=== PATIENT | female | born 1980 | race Caucasian/White ===

== ENCOUNTER 2016-07-09 02:42 | Emergency (ER) | payer OTHER ==
[~2016-07-09 02:42] MED LIST: Ketorolac INJ* 30 MG/ML 1 ML VIAL IV PUSH ONE; NS 0.9% 1000 ML* 1,000 ML IV ONE; PROCHLORPERAZINE INJ 5 MG/ML 2 ML VIAL IV PRN; diPHENhydraMINE IV* 25 MG in NS 0.9% 50 ML* 50 ML IVPB ONE
--- NOTE | 2016-07-09 02:47 | ED ---
Headache - HPI Summary HPI Summary: Patient presents for evaluation of throbbing to sharp mid-forehead headache for the last 2 hours refractory to her imitrex. Denies systemic symptoms, neuro deficits, specific inciting factors. No recent change to her regimen. Feels typical, but more severe. - History Of Current Complaint Stated Complaint: MIGRAINE Time Seen by Provider: 07/09/16 02:42 Hx Obtained From: Patient Hx Last Menstrual Period: On Depo; not sexually active since the summer Onset/Duration: Gradual Onset, Started hours ago Initially Headache Was: Moderate Currently Pain Is: Moderate Character: Sharp, Throbbing, Typical Headache, Migraine - Allergies/Home Medications Allergies/Adverse Reactions: Allergies Allergy/AdvReac Type Severity Reaction Status Date / Time Erythromycin Allergy Severe Hives/Diff. Verified 07/09/16 02:57 Breathing/I tching Cephalexin [From Keflex] Allergy Intermediate Hives/Diff. Verified 07/09/16 02: 57 Breathing/I tching Doxycycline Allergy Intermediate Hives/Diff. Verified 07/09/16 02:57 Breathing/I tching Sulfamethoxazole Allergy Intermediate Hives/Diff. Verified 07/09/16 02:57 w/Trimethoprim Breathing/I [From Bactrim] tching Ibuprofen Allergy Hives/Diff. Verified 07/09/16 02:57 Breathing/I tching Naproxen [From Naprosyn] Allergy Hives/Diff. Verified 07/09/16 02:57 Breathing/I tching Penicillins Allergy Unknown Verified 07/09/16 02:57 Reaction Details Tetanus Toxoid Allergy Hives/Diff. Verified 07/09/16 02:57 Breathing/I tching BANANAS Allergy Vomiting Uncoded 07/09/16 02:57 ENVIRONMENTAL Allergy Eyes Uncoded 07/09/16 02:57 Itchy/Swollen/Red/Watery ibuprofen Allergy Hives Uncoded 07/09/16 02:57 MUSCLE RELAXANT Allergy SEVERE Uncoded 07/09/16 02:57 NAUSEA AND VOMITING PMH/Surg Hx/FS Hx/Imm Hx Previously Healthy: Yes Endocrine/Hematology History: Denies: Hx Diabetes, Hx Thyroid Disease Cardiovascular History: Denies: Hx Hypertension Respiratory History: Reports: Hx Asthma, Hx Sleep Apnea, Other Respiratory Problems/Disorders - SINUS POLYPS Denies: Hx Chronic Obstructive Pulmonary Disease (COPD) GI History: Reports: Other GI Disorders - STATES TENDS TO GET NAUSEATED WITH PAIN & ANESTHESIA Denies: Hx Ulcer History: Reports: Hx Kidney Infection - FREQUENT HX OF LAST ONE 2 WEEKS AGO, Other Problems/Disorders - STATES EVERY TIME SHE IS CATHERIZED SHE GETS INFECTION Musculoskeletal History: Reports: Hx Arthritis - BILATERAL JAW - TMJ, Hx Tendonitis - Hx OF, YEARS AGO, ARMS Sensory History: Reports: Hx Contacts or Glasses - WILL WEAR GLASSES DAY OF SURGERY Denies: Hx Hearing Aid Opthamlomology History: Reports: Hx Contacts or Glasses - WILL WEAR GLASSES DAY OF SURGERY Neurological History: Reports: Hx Migraine - UNDER CONTROL, Other Neuro Impairments/Disorders - NYSTAGUMUS Psychiatric History: Reports: Hx Anxiety - ON MED, Hx Depression - Surgical History Surgery Procedure, Year, and Place: TMJ SURGERY X2 2001, 2002. 2006. sinus surgery Hx Anesthesia Reactions: No Infectious Disease History: Denies: Hx Clostridium Difficile, Hx Hepatitis, Hx Human Immunodeficiency Virus (HIV), Hx of Known/Suspected MRSA, Hx Shingles, Hx Tuberculosis, Hx Known/ Suspected VRE, Hx Known/Suspected VRSA, History Other Infectious Disease - Family History Known Family History: Positive: Diabetes - maternal grandmother - Social History Alcohol Use: Rare Alcohol Amount: MAYBE 1 DRINK/YEAR Substance Use Type: Reports: None Smoking Status (MU): Never Smoked Tobacco Have You Smoked in the Last Year: No Review of Systems Negative: Chills Negative: Photophobia, Blurred Vision, Diplopia Positive: Headache. Negative: Weakness, Paresthesia, Numbness, Syncope, Slurred Speech All Other Systems Reviewed And Are Negative: Yes Physical Exam Triage Information Reviewed: Yes Vital Signs Reviewed: Yes Appearance: Positive: Well-Appearing, Well-Nourished, Pain Distress Skin: Positive: Warm, Skin Color Reflects Adequate Perfusion, Dry Head/Face: Positive: Normal Head/Face Inspection. Negative: Temporal Artery Tenderness, TMJ Tenderness Eyes: Positive: Normal, EOMI, MARCIO ENT: Positive: Normal ENT inspection, Hearing grossly normal, Pharynx normal, TMs normal Respiratory/Lung Sounds: Positive: Clear to Auscultation, Breath Sounds Present Cardiovascular: Positive: Normal, RRR, Pulses are Symmetrical in both Upper and Lower Extremities Abdomen Description: Positive: Nontender, No Organomegaly, Soft Musculoskeletal: Positive: Normal, Strength/ROM Intact Neurological: Positive: Normal, Sensory/Motor Intact, Alert, Oriented to Person Place, Time, CN Intact II-III, Reflexes Intact, Normal Gait Headache Course/Dx - Diagnoses Differential Diagnosis/HQI/PQRI: Migraine, Tension Headache, Other - PRimary concern for migrainous headache. Supportive care and PCP FU. Provider Diagnoses: Headache, Drug-seeking behavior Discharge - Discharge Plan Condition: Improved Disposition: HOME Patient Education Materials: Acute Headache (ED) Referrals: Maddison Graham NP [Nurse Practitioner] - Mariano Diggs MD [Primary Care Provider] -
[2016-07-09 02:57] VITALS: BP 120/63
== END 2016-07-09 04:21 | disposition home or self-care (01) ==
LOC: ED 02:42
DX: R51 Headache (principal); Z76.5 Malingerer [conscious simulation]; F41.9 Anxiety disorder, unspecified; F32.9 Major depressive disorder, single episode, unspecified; Z88.0 Allergy status to penicillin; Z88.2 Allergy status to sulfonamides
CPT/HCPCS: 96360; 96374; 96375; 99283; J0780; J1200; J1885

== ENCOUNTER 2016-10-19 19:29 | Emergency (ER) | payer OTHER ==
--- NOTE | 2016-10-19 19:50 | UC ---
Allergic Reaction HPI - HPI Summary HPI Summary: complaint of being bit by a bug on her right hand 1 hour ago she notied swelling on hir right hand her tongue and throat started to feel swollen and tight denies any shortness of breath hx of anaphylactic reactions to may antoibitoics in the past doesn't have an epi pen - History of Current Complaint Stated Complaint: ALLERGIC REACTION Time Seen by Provider: 10/19/16 19:44 Hx Obtained From: Patient Hx Last Menstrual Period: On Depo; not sexually active since the summer - Allergies/Home Medications Allergies/Adverse Reactions: Allergies Allergy/AdvReac Type Severity Reaction Status Date / Time Erythromycin Allergy Severe Hives/Diff. Verified 10/19/16 19:51 Breathing/I tching Cephalexin [From Keflex] Allergy Intermediate Hives/Diff. Verified 10/19/16 19: 51 Breathing/I tching Doxycycline Allergy Intermediate Hives/Diff. Verified 10/19/16 19:51 Breathing/I tching Levofloxacin [From Levaquin] Allergy Intermediate Vomiting Verified 10/19/16 20: 34 Sulfamethoxazole Allergy Intermediate Hives/Diff. Verified 10/19/16 19:51 w/Trimethoprim Breathing/I [From Bactrim] tching Ibuprofen Allergy Hives/Diff. Verified 10/19/16 19:51 Breathing/I tching Naproxen [From Naprosyn] Allergy Hives/Diff. Verified 10/19/16 19:51 Breathing/I tching Penicillins Allergy Unknown Verified 10/19/16 19:51 Reaction Details Tetanus Toxoid Allergy Hives/Diff. Verified 10/19/16 19:51 Breathing/I tching BANANAS Allergy Vomiting Uncoded 10/19/16 19:51 ENVIRONMENTAL Allergy Eyes Uncoded 10/19/16 19:51 Itchy/Swollen/Red/Watery ibuprofen Allergy Hives Uncoded 10/19/16 19:51 MUSCLE RELAXANT Allergy SEVERE Uncoded 10/19/16 19:51 NAUSEA AND VOMITING PMH/Surg Hx/FS Hx/Imm Hx Previously Healthy: Yes Endocrine History Of: Denies: Diabetes, Thyroid Disease Cardiovascular History Of: Denies: Cardiac Disorders, Hypertension, Pacemaker/ICD Respiratory History Of: Reports: Asthma, Bronchitis - Hx OF, LAST WAS 04/2015 Denies: COPD GI/ History Of: Denies: Ulcer, Renal Disease Neurological History Of: Reports: Migraine - UNDER CONTROL Psychological History Of: Reports: Anxiety - ON MED, Depression - Surgical History Surgical History: Yes Surgery Procedure, Year, and Place: TMJ SURGERY X2 2001, 2002. 2006. sinus surgery. [facility] & C. CAUTERIZED TEAR DUCTS - Family History Known Family History: Positive: Diabetes - maternal grandmother Negative: Cardiac Disease, Hypertension - Social History Occupation: Employed Full-time Lives: With Family Alcohol Use: Rare Alcohol Amount: MAYBE 1 DRINK/YEAR Substance Use Type: None Smoking Status (MU): Never Smoked Tobacco Have You Smoked in the Last Year: No Review of Systems Constitutional: Negative Skin: Other - right hand with insecct bite Eyes: Negative ENT: Other - swollen tongue Respiratory: Negative Cardiovascular: Negative Gastrointestinal: Negative Genitourinary: Negative Motor: Negative Neurovascular: Negative Musculoskeletal: Negative Neurological: Negative Psychological: Negative All Other Systems Reviewed And Are Negative: Yes Physical Exam Triage Information Reviewed: Yes Appearance: Well-Nourished, Pain Distress Vital Signs Reviewed: Yes Eyes: Positive: Conjunctiva Clear ENT: Positive: TMs normal, Other: - tongue swollen unable to see back of throat. Negative: Nasal congestion Neck: Positive: No Lymphadenopathy Respiratory: Positive: Lungs clear, Normal breath sounds, No respiratory distress, No accessory muscle use Cardiovascular: Positive: RRR, No Murmur, Pulses Normal, Brisk Capillary Refill Abdomen Description: Positive: Nontender, No Organomegaly, Soft Bowel Sounds: Positive: Present Musculoskeletal: Positive: Other: - right hand - edema and raised area on eminence of thumb Neurological: Positive: Alert Psychological Exam: Normal Skin Exam: Normal Allergic Reaction Course/Dx - Course Course Of Treatment: exam completed. responded well to anaphylaxis treatment- tongue swelling resolving , VSS, will treat for cellulitis with zithromax because it appears to be the only antibiotic and discharge on prednisone, benadryl and epi pen. followup with PCP - Differential Dx/Diagnosis Differential Diagnosis/HQI/PQRI: Airway Obstruction, Anaphylaxis, Bronchospasm Provider Diagnoses: anaphylactic reaction Discharge - Discharge Plan Condition: Stable Disposition: HOME Prescriptions: Azithromycin TAB* [Zithromax TAB (Z-MSESI) 250 mg #6 tabs] 2 tab PO .TODAY, THEN 1 DAILY #1 messi Epinephrine [Epipen 2-Messi] 0.3 mg IM SEE INSTRUCTIONS #1 inj diPHENhydraMINE PO* [Benadryl PO 50 MG CAP*] 50 mg PO TID #15 cap predniSONE TAB* [Deltasone TAB*] 50 mg PO DAILY #5 tab Patient Education Materials: Anaphylaxis (ED), Cellulitis (ED) Referrals: Luis Fowler DO [Primary Care Provider] - Additional Instructions: Please start antibiotic , prednisone and benadryl as directed please make followup appt with your primary care provider for followup seem medical assistance for allergic reactions and if the swelling a, redness pain in your hand increase or you develop a fever Increase fluids and rest Take acetaminophen or ibuprofen for fever or pain Please review your discharge instructions. If your symptoms do not improve please call your primary care provider or return to urgent care.
[2016-10-19] MEDS ORDERED: EPINEPHrine AMP 1 MG/ML SUBCUT ONE (19:53)
[2016-10-19] MEDS ORDERED: diPHENhydraMINE IV* 50 MG/ML 1 ml VIAL (BENADRYL) IM ONE (19:53)
[2016-10-19] MEDS ORDERED: methylPREDNISolone 125 MG* 2 ML VIAL IM ONE (19:54)
[2016-10-19] MEDS ORDERED: Azithromycin TAB* 250 MG PO ONE (20:46)
[2016-10-19 21:04] VITALS: BP 112/68
== END 2016-10-19 20:59 | disposition home or self-care (01) ==
LOC: UCEAST 19:29
DX: T63.91XA Toxic effect of contact with unspecified venomous animal, accidental (unintentional), initial encounter (principal); T78.2XXA Anaphylactic shock, unspecified, initial encounter; X58.XXXA Exposure to other specified factors, initial encounter; J45.909 Unspecified asthma, uncomplicated; G43.909 Migraine, unspecified, not intractable, without status migrainosus; F41.9 Anxiety disorder, unspecified; F32.9 Major depressive disorder, single episode, unspecified; Z88.1 Allergy status to other antibiotic agents; Z88.6 Allergy status to analgesic agent; Z88.0 Allergy status to penicillin; Z88.2 Allergy status to sulfonamides; Z88.7 Allergy status to serum and vaccine
CPT/HCPCS: 96372; 99212; A9270-GY; G0463; J0171; J1200; J2930

== ENCOUNTER 2016-11-21 14:49 | Emergency (ER) | payer OTHER ==
[2016-11-21] MEDS ORDERED: diPHENhydraMINE IV* 50 MG/ML 1 ml VIAL (BENADRYL) SLOW PUSH ONE (14:52)
[2016-11-21 15:05] VITALS: BP 113/69
--- NOTE | 2016-11-21 15:42 | UC ---
General HPI - HPI Summary HPI Summary: The patient comes in today for: 1. "I'm having an allergic reaction:" Onset: about one hour ago. Palliative/provocative: Nothing. Quality: Itching. Region: Right hand for the bite. Severity: Headache: 6/10 Time: Constant. Associated symptoms: Event: "It looked like a dot." She states as well as her son that she was stung by a spider. The "spider" was so small, that it "Looked like a dot." AFter this happened, she started to experience "dizziness" ("unsteady"), and pain where she was "bitten." She also complained of having pruritis. She had some nausea and feeling "weird." She states that she has a "migraine" all day. She states that she has bitemporal and frontal headache. She drove over to us 20 minutes after she was "bit." "I felt like something was not right." She also described vertigo. Headaches: She has been getting "migraines" since 4th grade. She sees an unclaimed property officer who was evaluating her for a possible pituitary tumor, but this was ruled out. She is not scheduled yet for her neurology appointment. At this time, she is taking verapamil every day and sumatriptin--neither of them have been helping. LMP: November 07 of this year. When the patient initially came in complaining of an allergic reaction, she had no signs of one--no hives, no erythema or edema of the "bite" area, no bronchospasm, or vital sign abnormalities. She seemed more anxious than having an allergic reaction--thus the Benadryl IV since she stated that she felt like she was having an allergic reaction. * - History of Current Complaint Chief Complaint: UCGeneralIllness Stated Complaint: TROUBLE BREATHING, SPIDER BITE Time Seen by Provider: 11/21/16 14:51 Hx Obtained From: Patient, Family/Batteryman - Allergy/Home Medications Allergies/Adverse Reactions: Allergies Allergy/AdvReac Type Severity Reaction Status Date / Time Erythromycin Allergy Severe Hives/Diff. Verified 11/21/16 14:55 Breathing/I tching Cephalexin [From Keflex] Allergy Intermediate Hives/Diff. Verified 11/21/16 14: 55 Breathing/I tching Doxycycline Allergy Intermediate Hives/Diff. Verified 11/21/16 14:55 Breathing/I tching Levofloxacin [From Levaquin] Allergy Intermediate Vomiting Verified 11/21/16 14: 55 Sulfamethoxazole Allergy Intermediate Hives/Diff. Verified 11/21/16 14:55 w/Trimethoprim Breathing/I [From Bactrim] tching Ibuprofen Allergy Hives/Diff. Verified 11/21/16 14:55 Breathing/I tching Naproxen [From Naprosyn] Allergy Hives/Diff. Verified 11/21/16 14:55 Breathing/I tching Penicillins Allergy Unknown Verified 11/21/16 14:55 Reaction Details Tetanus Toxoid Allergy Hives/Diff. Verified 11/21/16 14:55 Breathing/I tching ENVIRONMENTAL Allergy Eyes Uncoded 11/21/16 14:55 Itchy/Swollen/Red/Watery ibuprofen Allergy Hives Uncoded 11/21/16 14:55 MUSCLE RELAXANT Allergy SEVERE Uncoded 11/21/16 14:55 NAUSEA AND VOMITING BANANAS AdvReac Vomiting Uncoded 11/21/16 14:55 PMH/Surg Hx/FS Hx/Imm Hx Previously Healthy: No - TMJ syndrome, chronic headaches. Respiratory History: Asthma Psychological History: Anxiety, Depression - Surgical History Surgical History: Yes Surgery Procedure, Year, and Place: TMJ SURGERY X2 2001, 2002. 2006. sinus surgery. [facility] & C. CAUTERIZED TEAR DUCTS - Family History Known Family History: Positive: Diabetes - maternal grandmother Negative: Cardiac Disease, Hypertension - Social History Occupation: Unemployed Lives: With Family Alcohol Use: Rare Alcohol Amount: MAYBE 1 DRINK/YEAR Substance Use Type: None Smoking Status (MU): Never Smoked Tobacco Have You Smoked in the Last Year: No Review of Systems Constitutional: Negative Skin: Negative Eyes: Negative ENT: Negative Respiratory: Negative Cardiovascular: Negative Gastrointestinal: Nausea Genitourinary: Negative Musculoskeletal: Arthralgia All Other Systems Reviewed And Are Negative: Yes Physical Exam Triage Information Reviewed: Yes Appearance: Well-Appearing, No Pain Distress, Well-Nourished Vital Signs: Initial Vital Signs Temp 99.1 F 11/21/16 15:00 Pulse 91 11/21/16 15:00 Resp 18 11/21/16 15:00 BP 113/69 11/21/16 15:00 Pulse Ox 100 11/21/16 15:00 Vital Signs Reviewed: Yes Eyes: Positive: Conjunctiva Clear. Negative: Discharge ENT: Positive: Hearing grossly normal, Other: - No oral edema.. Negative: Pharyngeal erythema, Nasal congestion, Nasal drainage, TM bulging, TM dull, TM red, Tonsillar swelling, Tonsillar exudate Dental: Negative: Gross Decay/Caries @, Dental Fracture @ Neck: Positive: Supple, Nontender, No Lymphadenopathy. Negative: Nuchal Rigidity Respiratory: Positive: Lungs clear, No respiratory distress, No accessory muscle use. Negative: Crackles, Wheezing Cardiovascular: Positive: RRR, No Murmur Abdomen Description: Positive: Nontender, No Organomegaly, Soft. Negative: Distended, Guarding Musculoskeletal: Positive: Strength Intact, ROM Intact, No Edema Neurological: Positive: Alert, Muscle Tone Normal Psychological: Positive: Normal Response To Family, Age Appropriate Behavior, Consolable Skin: Negative: rashes, breakdown Course/Dx - Course Course Of Treatment: Patient was given IV Bendaryl (25 mg) and she stated that she felt better. She was told that there are drug interactions between the Zofran and her mental health medications. Also, she was told that Tylenol #3 could also have a drug interaction, but would try a low-dose of Tylenol #3. She agreed. - Differential Dx - Multi-Symptom Provider Diagnoses: headache. insect bite Discharge - Discharge Plan Condition: Stable Disposition: HOME Patient Education Materials: Insect Bite or Sting (ED), General Headache (ED) Referrals: Luis Fowler DO [Primary Care Provider] - 1 Day (Please see your primary care provider tomorrow or no later in 2 days to see how well you are doing.)
[2016-11-21] MEDS ORDERED: Acetaminop/Codeine 30 MG TAB* 1 TAB (300 MG/30 MG) PO ONE (16:09)
== END 2016-11-21 16:30 | disposition home or self-care (01) ==
LOC: UCEAST 14:49
DX: R51 Headache (principal); S60.561A Insect bite (nonvenomous) of right hand, initial encounter; W57.XXXA Bitten or stung by nonvenomous insect and other nonvenomous arthropods, initial encounter; Y93.9 Activity, unspecified; Y92.9 Unspecified place or not applicable; Y99.9 Unspecified external cause status; J45.909 Unspecified asthma, uncomplicated; F41.8 Other specified anxiety disorders
CPT/HCPCS: 96374; 99212; 99213; A9270-GY; G0463; J1200

== ENCOUNTER 2017-06-11 09:41 | Emergency (ER) | payer OTHER ==
[2017-06-11] MEDS ORDERED: Acetaminophen TAB* 325 MG PO ONE ×2 (11:17→11:22)
[2017-06-11] MEDS ORDERED: Phenazopyridine TAB* 100 MG PO ONE (11:17)
[2017-06-11 11:31] VITALS: BP 98/61
--- NOTE | 2017-06-11 12:11 | UC ---
Maria De Jesus Maldonado Emily, scribed for Mariano Mitchell MD on 06/11/17 at 1138 . Complaint Female HPI - HPI Summary HPI Summary: This patient is a 36 year old F presenting to urgent care with a chief complaint of dysuria that began last night. The patient rates the pain 5/10 in severity. Symptoms aggravated by nothing. Symptoms alleviated by nothing. Patient reports dysuria, low back pain, chills, increased urinary frequency, and nausea. Patient denies nasal discharge, sore throat, vaginal discharge, vomiting, and diarrhea. - History Of Current Complaint Chief Complaint: UCGU Stated Complaint: URINARY ISSUE Time Seen by Provider: 06/11/17 10:50 Hx Obtained From: Patient Hx Last Menstrual Period: 05/28/16 ?: No Onset/Duration: Sudden Onset, Lasting Hours, Still Present Timing: Constant Severity Initially: Moderate Severity Currently: Moderate Pain Intensity: 5 Pain Scale Used: 0-10 Numeric Character: Burning Aggravating Factor(s): Movement Alleviating Factor(s): Nothing Associated Signs And Symptoms: Negative: Vaginal Bleeding/Discharge - Allergies/Home Medications Allergies/Adverse Reactions: Allergies Allergy/AdvReac Type Severity Reaction Status Date / Time Erythromycin Allergy Severe Hives/Diff. Verified 06/11/17 09:45 Breathing/I tching Cephalexin [From Keflex] Allergy Intermediate Hives/Diff. Verified 06/11/17 09: 45 Breathing/I tching Doxycycline Allergy Intermediate Hives/Diff. Verified 06/11/17 09:45 Breathing/I tching Levofloxacin [From Levaquin] Allergy Intermediate Vomiting Verified 06/11/17 09: 45 Sulfamethoxazole Allergy Intermediate Hives/Diff. Verified 06/11/17 09:45 w/Trimethoprim Breathing/I [From Bactrim] tching Ibuprofen Allergy Hives/Diff. Verified 06/11/17 09:45 Breathing/I tching Naproxen [From Naprosyn] Allergy Hives/Diff. Verified 06/11/17 09:45 Breathing/I tching Penicillins Allergy Unknown Verified 06/11/17 09:45 Reaction Details Tetanus Toxoid Allergy Hives/Diff. Verified 06/11/17 09:45 Breathing/I tching ENVIRONMENTAL Allergy Eyes Uncoded 06/11/17 09:45 Itchy/Swollen/Red/Watery ibuprofen Allergy Hives Uncoded 06/11/17 09:45 MUSCLE RELAXANT Allergy SEVERE Uncoded 06/11/17 09:45 NAUSEA AND VOMITING BANANAS AdvReac Vomiting Uncoded 06/11/17 09:45 Home Medications: Home Medications Ascorbic Acid TAB* [Vitamin C TAB*] 1,000 mg PO BID 06/11/17 [History Confirmed 06/11/17] Biotin 2,000 mcg PO DAILY 06/11/17 [History Confirmed 06/11/17] Calcium W/ Vitamins D & K [Calcium + D 500-1000-40 mg-Unt-Mcg] 1 tab PO DAILY [History Confirmed 06/11/17] Cyanocobalamin INJ * [Vitamin B12 INJ *] 1 inj IM MONTHLY 06/11/17 [History Confirmed 06/11/17] Dihydroergotamine (D.H.E.)* [D.h.e. 45*] 1 ml IM TID PRN 06/11/17 [History Confirmed 06/11/17] Evening Braggs Oil 1,300 mg PO DAILY 06/11/17 [History Confirmed 06/11/17] Levetiracetam [Keppra 250] 1 tab PO DAILY 06/11/17 [History Confirmed 06/11/17] Magnesium 500 mg PO DAILY 06/11/17 [History Confirmed 06/11/17] Methylphenidate TAB* [Ritalin TAB*] 20 mg PO TID PRN 06/11/17 [History Confirmed 06/11/17] Pyridoxine HCl [Vitamin B-6] 4 tab PO DAILY 06/11/17 [History Confirmed 06/11/17 ] Selenium 150 mg PO DAILY 06/11/17 [History Confirmed 06/11/17] Zinc [Zinc Chelated] 75 mg PO DAILY 06/11/17 [History Confirmed 06/11/17] PMH/Surg Hx/FS Hx/Imm Hx Previously Healthy: No Respiratory History: Other Other Respiratory History: Negative asthma GI/ History: Other Other GI/ History: UTI - Surgical History Surgical History: Yes Surgery Procedure, Year, and Place: TMJ SURGERY X2 2001, 2002. 2006. sinus surgery. D & C. CAUTERIZED TEAR DUCTS - Family History Known Family History: Positive: Diabetes - maternal grandmother Negative: Cardiac Disease, Hypertension - Social History Occupation: Employed Part-time Lives: With Family Alcohol Use: Rare Alcohol Amount: MAYBE 1 DRINK/YEAR Substance Use Type: None Smoking Status (MU): Never Smoked Tobacco Have You Smoked in the Last Year: No Review of Systems Constitutional: Chills ENT: Other - Negative nasal discharge and sore throat Gastrointestinal: Nausea, Other - Negative vomiting and diarrhea Genitourinary: Dysuria, Frequency, Other - Negative vaginal discharge Musculoskeletal: Other: - Positive low back pain All Other Systems Reviewed And Are Negative: Yes Physical Exam Triage Information Reviewed: Yes Vital Signs: Initial Vital Signs Temp 98 F 06/11/17 09:46 Pulse 76 06/11/17 09:46 Resp 17 06/11/17 09:46 BP 101/49 06/11/17 09:46 Pulse Ox 100 06/11/17 09:46 Vital Signs Reviewed: Yes - Additional Comments General: no pain distress, mildly ill appearing Skin: warm, color reflects adequate perfusion, dry Head: normal Eyes: EOMI, MARCIO ENT: normal Neck: supple, nontender Respiratory: CTA, breath sounds present Cardiovascular: RRR Abdomen: soft, mild suprapubic tenderness to palpation Bowel: present Musculoskeletal: strength/ROM intact, tenderness to percussion bilateral CVA Neurological: normal, sensory/motor intact, A&O x3 Psychological: affect/mood appropriate Complaint Female Dx - Course Course Of Treatment: RX MACROBID. F/U PMD; REEVAL IF WORSE. - Differential Dx/Diagnosis Provider Diagnoses: UTI Discharge - Discharge Plan Condition: Stable Disposition: HOME Prescriptions: Nitrofurantoin Monohyd Macro [Macrobid] 100 mg PO BID #20 cap Phenazopyridine 200 mg (NF) [Pyridium 200 MG tab *] 200 mg PO TID PRN #10 tab PRN Reason: Pain Patient Education Materials: Urinary Tract Infection in Women (ED) Forms: *Work Release Referrals: Luis Fowler DO [Primary Care Provider] - Additional Instructions: FOLLOW UP WITH YOUR DOCTOR. GET RECHECKED FOR ANY WORSENING OF YOUR CONDITION OR QUESTIONS OR CONCERNS. The documentation as recorded by the Maria De Jesus fontaine Emily accurately reflects the service I personally performed and the decisions made by me, Mariano Mitchell MD.
--- NOTE | 2017-06-12 21:58 | UC ---
- Progress Note Progress Note: + UTI on macrobid await sensitivity no change Vikas 06/12/2017 Course/Dx - Course Course Of Treatment: RX MACROBID. F/U PMD; REEVAL IF WORSE.
== END 2017-06-11 11:30 | disposition home or self-care (01) ==
LOC: UCEAST 09:41
DX: N39.0 Urinary tract infection, site not specified (principal); B96.20 Unspecified Escherichia coli [E. coli] as the cause of diseases classified elsewhere; Z87.440 Personal history of urinary (tract) infections; Z88.6 Allergy status to analgesic agent; Z88.1 Allergy status to other antibiotic agents; Z88.0 Allergy status to penicillin; Z88.2 Allergy status to sulfonamides; Z88.7 Allergy status to serum and vaccine
CPT/HCPCS: 81003; 87077; 87086; 87186; 99213; A9270-GY; G0463

== ENCOUNTER 2017-07-09 07:24 | Emergency (ER) | payer OTHER ==
[2017-07-09 07:42] VITALS: BP 105/53
--- NOTE | 2017-07-09 08:25 | UC ---
Complaint Female HPI - HPI Summary HPI Summary: Pt presents with urinary pain, pressure, and frequency since early this morning. She tells me that she has a history of UTIs and this feels similar. She was last seen about 1 month ago for a cultue +UTI and placed on Macrobid with good relief of her symptoms. She denies fever, chills, abdominal pain, n/v/ d/c, vaginal discharge/bleeding, or flank pain. - History Of Current Complaint Chief Complaint: UCGU Stated Complaint: LOWER BACK PAIN Time Seen by Provider: 07/09/17 08:22 Hx Obtained From: Patient Hx Last Menstrual Period: 06/28/17 Onset/Duration: Sudden Onset Timing: Constant Severity Initially: Mild Severity Currently: Moderate Pain Intensity: 6 Pain Scale Used: 0-10 Numeric Character: Burning - Allergies/Home Medications Allergies/Adverse Reactions: Allergies Allergy/AdvReac Type Severity Reaction Status Date / Time MS Erythromycin Allergy Severe Hives/Diff. Verified 07/09/17 07:47 [Erythromycin] Breathing/I tching MS Cephalexin [From Keflex] Allergy Intermediate Hives/Diff. Verified 07/09/17 07:47 Breathing/I tching MS Doxycycline [Doxycycline] Allergy Intermediate Hives/Diff. Verified 07/09/17 07:47 Breathing/I tching MS Levofloxacin Allergy Intermediate Vomiting Verified 07/09/17 07:47 [From Levaquin] MS Sulfamethoxazole Allergy Intermediate Hives/Diff. Verified 07/09/17 07:47 w/Trimethoprim Breathing/I [From Bactrim] tching MS Ibuprofen [Ibuprofen] Allergy Hives/Diff. Verified 07/09/17 07:47 Breathing/I tching MS Naproxen [From Naprosyn] Allergy Hives/Diff. Verified 07/09/17 07:47 Breathing/I tching MS Penicillins [Penicillins] Allergy Unknown Verified 07/09/17 07:47 Reaction Details MS Tetanus Toxoid Allergy Hives/Diff. Verified 07/09/17 07:47 [Tetanus Toxoid] Breathing/I tching ENVIRONMENTAL Allergy Eyes Uncoded 07/09/17 07:47 Itchy/Swollen/Red/Watery ibuprofen Allergy Hives Uncoded 07/09/17 07:47 MUSCLE RELAXANT Allergy SEVERE Uncoded 07/09/17 07:47 NAUSEA AND VOMITING BANANAS AdvReac Vomiting Uncoded 07/09/17 07:47 PMH/Surg Hx/FS Hx/Imm Hx - Additional Past Medical History Additional PMH: Chronic pain Neurological History: Seizures, Migraine - Surgical History Surgical History: Yes Surgery Procedure, Year, and Place: TMJ SURGERY X2 2001, 2002. 2006. sinus surgery. [facility]. CAUTERIZED TEAR DUCTS - Family History Known Family History: Positive: Diabetes - maternal grandmother Negative: Cardiac Disease, Hypertension - Social History Lives: With Family Alcohol Use: Rare Alcohol Amount: MAYBE 1 DRINK/YEAR Substance Use Type: None Smoking Status (MU): Never Smoked Tobacco Have You Smoked in the Last Year: No Review of Systems Constitutional: Negative Skin: Negative Respiratory: Negative Cardiovascular: Negative Gastrointestinal: Negative Genitourinary: Dysuria, Frequency, Urgency Motor: Negative Musculoskeletal: Negative Neurological: Negative Psychological: Negative All Other Systems Reviewed And Are Negative: Yes Physical Exam Triage Information Reviewed: Yes Appearance: Well-Appearing, No Pain Distress, Well-Nourished Vital Signs: Initial Vital Signs Temp 98 F 07/09/17 07:40 Pulse 66 07/09/17 07:40 Resp 16 07/09/17 07:40 BP 105/53 07/09/17 07:40 Pulse Ox 99 07/09/17 07:40 Vital Signs Reviewed: Yes Neck: Positive: Supple, Nontender, No Lymphadenopathy Respiratory: Positive: Lungs clear, Normal breath sounds, No respiratory distress Cardiovascular: Positive: RRR, No Murmur, Pulses Normal Abdomen Description: Positive: Nontender, No Organomegaly, Soft. Negative: CVA Tenderness (R), CVA Tenderness (L), Distended, Guarding Bowel Sounds: Positive: Present Neurological: Positive: Alert Psychological: Positive: Age Appropriate Behavior Skin: Negative: rashes Complaint Female Dx - Course Course Of Treatment: UA with signs of infection - will treat with macrobid and pyridium and send for culture. - Differential Dx/Diagnosis Provider Diagnoses: UTI Discharge - Discharge Plan Condition: Stable Disposition: HOME Prescriptions: Nitrofurantoin Macrocrystal [Nitrofurantoin] 100 mg PO BID #10 capsule Phenazopyridine 200 mg (NF) [Pyridium 200 MG tab *] 200 mg PO TID #6 tab Patient Education Materials: Urinary Tract Infection in Women (DC) Referrals: Sopchak,Luis, DO [Primary Care Provider] - Additional Instructions: If you develop a fever, shortness of breath, chest pain, new or worsening symptoms - please call your PCP or go to the ED.
[2017-07-09] MEDS ORDERED: Phenazopyridine TAB* 100 MG PO ONE (08:26)
== END 2017-07-09 08:40 | disposition home or self-care (01) ==
LOC: UCEAST 07:24
DX: N39.0 Urinary tract infection, site not specified (principal); Z87.440 Personal history of urinary (tract) infections; R56.9 Unspecified convulsions; G43.909 Migraine, unspecified, not intractable, without status migrainosus; Z88.6 Allergy status to analgesic agent; Z88.1 Allergy status to other antibiotic agents; Z88.0 Allergy status to penicillin; Z88.7 Allergy status to serum and vaccine
CPT/HCPCS: 81003; 87086; 99212; A9270-GY; G0463

== ENCOUNTER 2017-07-14 10:47 | Emergency (ER) | payer OTHER ==
[2017-07-14 11:41] LABS: ABS Basophils 0 10^3/ul (0-0.2); ABS Eosinophils 0.1 10^3/ul (0-0.6); ABS Monocytes 0.4 10^3/ul (0-0.8); ABS Neutrophils 3.4 10^3/ul (1.5-7.7); ABS Nucleated RBC 0 10^3/ul; Eosinophil % 0.9 % (0-6); Hematocrit 40 % (35-47); Hemoglobin 13.3 g/dl (12.0-16.0); Lymphocyte % 33.8 % (25-47); Mean Corpuscular HGB Conc 34 g/dl (31-36); Mean Corpuscular Hemoglobin 30 pg (27-31); Mean Corpuscular Volume 88 fL (80-97); Mean Platelet Volume 7 um3 (7.4-10.4); Nucleated Red Blood Cells % 0.1; Platelet Count 265 10^3/ul (150-450); Red Blood Count 4.47 10^6/ul (4.0-5.4); Red Cell Distribution Width 14 % (10.5-15)
[2017-07-14 11:58] LABS: EGFR Non-African American 93.1 (>60)
[2017-07-14] MEDS ORDERED: Ondansetron ODT TAB* 4 MG PO ONE (12:42)
[2017-07-14] MEDS ORDERED: Ondansetron ODT TAB* 4 MG ONE (12:43)
--- NOTE | 2017-07-14 13:34 | RAD ---
HISTORY: Right flank pain, history of stones COMPARISONS: September 15, 2006 TECHNIQUE: Multiple transverse and longitudinal ultrasound images were obtained of the right kidney and bladder using grayscale and color Doppler imaging. FINDINGS: RIGHT KIDNEY: The right kidney is normal in shape, size, contour, and echogenicity. There is mild pelviectasis. There is echogenic material noted within the pelvis. The right kidney measures 9.8 x 5 x 5.3 cm. LEFT KIDNEY: No images are submitted of the left kidney. BLADDER: The bladder is smooth in contour. Bilateral ureteral jets are identified. AORTA AND IVC: No images are submitted of the vasculature. RETROPERITONEUM: Unremarkable. OTHER: None. IMPRESSION: THERE IS MILD RIGHT-SIDED HYDRONEPHROSIS. THERE IS ECHOGENIC MATERIAL WITHIN THE RIGHT RENAL PELVIS WHICH SUGGESTS COMPLEX FLUID, POSSIBLY IN THE SETTING OF UPPER URINARY TRACT INFECTION
[2017-07-14] MEDS ORDERED: Ketorolac INJ* 30 MG/ML 1 ML VIAL IV PUSH ONE (14:05)
[2017-07-14] MEDS ORDERED: NS 0.9% 1000 ML* 2,000 ML IV ONE (14:09)
[2017-07-14] MEDS ORDERED: Ondansetron INJ* 2 MG/ML VIAL IV ONE (14:36)
[2017-07-14] MEDS ORDERED: Morphine INJ* 10 MG/ML 1 ML CARPUJECT IV ONE (14:36)
[2017-07-14 14:44] LABS: Urine Appearance Clear; Urine Blood Negative (Negative); Urine Color Yellow; Urine Ketones Negative (Negative); Urine Protein Negative (Negative); Urine Specific Gravity 1.008 (1.010-1.030); Urine Urobilinogen Negative (Negative)
--- NOTE | 2017-07-14 15:02 | RAD ---
CLINICAL HISTORY: Right flank pain, hydronephrosis COMPARISON: Ultrasound dated July 14, 2017 TECHNIQUE: Multiple contiguous axial CT scans were obtained of the abdomen and pelvis, without intravenous contrast enhancement. Coronal and sagittal multiplanar reformations are submitted for review. Oral contrast was not administered. FINDINGS: LUNG BASES: The lung bases are clear. LIVER: The liver is normal in shape, size, contour, and attenuation. BILE DUCTS: There is no intrahepatic or extrahepatic biliary dilatation. GALLBLADDER: The gallbladder is normal, without pericholecystic inflammatory change. PANCREAS: The pancreas is normal, without mass or ductal dilatation. SPLEEN: Normal in size and appearance. UPPER GI TRACT: Evaluation of the gastrointestinal tract is limited by incomplete gastric distention. The upper GI tract is unremarkable. SMALL BOWEL AND MESENTERY: The small bowel is normal in contour, course, and caliber. There is no obstruction or dilatation. COLON: The colon is normal in contour, course, caliber. There is no pericolonic inflammatory change. There is a tubular, vermiform, hollow viscus that is blind ending, and originates from the cecum, consistent with a normal appendix. There is no periappendiceal inflammatory change. This is best seen on coronal images 40 through 46. ADRENALS: Normal bilaterally. KIDNEYS: Right-sided hydronephrosis noted on sonography is not clearly evident on the current examination. There is no appreciable nephrolithiasis. BLADDER: The bladder is smooth in contour. PELVIC ORGANS: The uterus and adnexa are grossly normal for technique. AORTA: The aorta is normal. IVC: Unremarkable LYMPH NODES: There is no lymphadenopathy by size criteria. ABDOMINAL WALL: There is no evidence for abdominal wall hernia. BONES AND SOFT TISSUES: Unremarkable OTHER: None IMPRESSION: THE RIGHT-SIDED HYDRONEPHROSIS NOTED ON SONOGRAPHY IS NOT CLEARLY EVIDENT ON THE CURRENT CT EXAMINATION. THERE IS NO APPRECIABLE NEPHROLITHIASIS.
[2017-07-14] MEDS ORDERED: oxyCODONE/Acetamin 5/325 MG* TAB PO ONE (16:28)
[2017-07-14] MEDS ORDERED: Lidocaine PATCH 5%* 1 PATCH TRANSDERM ONE (16:28)
--- NOTE | 2017-07-14 17:32 | RAD ---
HISTORY: Right upper quadrant pain COMPARISONS: Renal ultrasound dated July 14, 2009, CT dated July 14, 2018 TECHNIQUE: Multiple transverse and longitudinal ultrasound images were obtained of the right upper quadrant of the abdomen using grayscale and color Doppler imaging. FINDINGS: LIVER: The liver is normal in shape, size, contour, and echogenicity. There are no focal parenchymal masses. There is normal hepatopedal flow of the portal vein on Doppler imaging. BILIARY TREE: There is no intrahepatic or extrahepatic biliary dilatation. The common duct measures 0.4 cm. GALLBLADDER: The gallbladder is well-visualized. There is no cholelithiasis, gallbladder wall thickening, pericholecystic fluid, or sonographic Haas sign. PANCREAS: The pancreas is obscured by overlying bowel gas. RIGHT KIDNEY: The right kidney is normal in shape, size, contour, and echogenicity. The right hydronephrosis noted on the previous examination is not evident on the current examination. . AORTA AND IVC: The aorta and IVC are unremarkable. FLUID: There are no pleural effusions. There is no free fluid within the hepatorenal recess. OTHER FINDINGS: None. IMPRESSION: THE RIGHT HYDRONEPHROSIS NOTED ON THE PREVIOUS ULTRASOUND EXAMINATION IS NOT EVIDENT ON THE CURRENT EXAMINATION. NO ACUTE SONOGRAPHIC PATHOLOGY OF THE VISUALIZED PORTION OF THE ABDOMEN.
[2017-07-14 19:11] VITALS: BP 112/74
[2017-07-14] MEDS ORDERED: traMADol TAB* 50 MG PO PRN (19:12)
[2017-07-14] MEDS ORDERED: Lidocaine Patch REMOVE* 1 NOTE MISC SCH (21:00)
--- NOTE | 2017-07-15 22:42 | ED ---
Dillon Maldonado Stephanie, scribed for Geovani Vazquez MD on 07/14/17 at 1310 . Back Pain - HPI Summary HPI Summary: The pt is a 36 y/o F presenting to the ED with c/o R flank pain that began overnight on 07/14. Symptoms include vomiting. The pt denies fever, hematuria and chills. The pt states she recently finished taking abx for a UTI which she started taking on 07/09. - History of Current Complaint Chief Complaint: EDFlankPain Stated Complaint: RIGHT SIDE ABD PAIN, Time Seen by Provider: 07/14/17 12:54 Hx Obtained From: Patient Hx Last Menstrual Period: 06/28/17 Onset/Duration: Sudden Onset, Lasting Hours, Still Present Onset/Duration: Started Hours Ago, Still Present Timing: Constant Back Pain Location: Is Discrete @ - R flank Severity Currently: Severe Pain Intensity: 6 Pain Scale Used: 0-10 Numeric Character: Sharp Aggravating Symptom(s): Movement, Other - palpation Alleviating Symptom(s): Nothing Associated Signs And Symptoms: Positive: Flank Pain - R, Other - Negative: hematuria, chills. Negative: Fever - Allergies/Home Medications Allergies/Adverse Reactions: Allergies Allergy/AdvReac Type Severity Reaction Status Date / Time banana Allergy Vomiting Verified 07/14/17 13:51 cephalexin [From Keflex] Allergy Difficulty Verified 07/14/17 13:51 Breathing doxycycline Allergy Difficulty Verified 07/14/17 13:51 Breathing/Wheezing erythromycin base Allergy Difficulty Verified 07/14/17 13:51 [From Erythrocin] Breathing ibuprofen Allergy Hives Verified 07/14/17 13:51 levofloxacin [From Levaquin] Allergy Vomiting Verified 07/14/17 13:51 naproxen [From Naprosyn] Allergy Difficulty Verified 07/14/17 13:51 Breathing Penicillins Allergy Unknown Verified 07/14/17 13:51 Reaction Details sulfamethoxazole Allergy Difficulty Verified 07/14/17 13:51 [From Bactrim] Breathing tetanus and diphtheria Allergy Difficulty Verified 07/14/17 13:51 toxoids Breathing trimethoprim [From Bactrim] Allergy Difficulty Verified 07/14/17 13:51 Breathing ENVIRONMENTAL Allergy Eyes Uncoded 07/09/17 07:47 Itchy/Swollen/Red/Watery ibuprofen Allergy Hives Uncoded 07/09/17 07:47 muscle rel Allergy Vomiting Uncoded 07/14/17 13:51 MUSCLE RELAXANT Allergy SEVERE Uncoded 07/09/17 07:47 NAUSEA AND VOMITING BANANAS AdvReac Vomiting Uncoded 07/09/17 07:47 PMH/Surg Hx/FS Hx/Imm Hx Endocrine/Hematology History: Denies: Hx Diabetes, Hx Thyroid Disease Cardiovascular History: Denies: Hx Hypertension, Hx Pacemaker/ICD Respiratory History: Reports: Hx Asthma, Hx Sleep Apnea, Other Respiratory Problems/Disorders - SINUS POLYPS Denies: Hx Chronic Obstructive Pulmonary Disease (COPD) GI History: Reports: Other GI Disorders - STATES TENDS TO GET NAUSEATED WITH PAIN & ANESTHESIA Denies: Hx Ulcer History: Reports: Hx Kidney Infection - FREQUENT HX OF LAST ONE 2 WEEKS AGO, Other Problems/Disorders - STATES EVERY TIME SHE IS CATHERIZED SHE GETS INFECTION Denies: Hx Renal Disease Musculoskeletal History: Reports: Hx Arthritis - BILATERAL JAW - TMJ, Hx Tendonitis - Hx OF, YEARS AGO, ARMS Sensory History: Reports: Hx Contacts or Glasses - WILL WEAR GLASSES DAY OF SURGERY Denies: Hx Hearing Aid Opthamlomology History: Reports: Hx Contacts or Glasses - WILL WEAR GLASSES DAY OF SURGERY Neurological History: Reports: Hx Migraine - UNDER CONTROL, Other Neuro Impairments/Disorders - NYSTAGUMUS Psychiatric History: Reports: Hx Anxiety - ON MED, Hx Depression Denies: Hx Panic Disorder - Surgical History Surgery Procedure, Year, and Place: TMJ SURGERY X2 2001, 2002. 2006. sinus surgery. [facility]. CAUTERIZED TEAR DUCTS Hx Anesthesia Reactions: No - Immunization History Date of Tetanus Vaccine: allergic to vaccine Date of Influenza Vaccine: fall 2015 Infectious Disease History: No Infectious Disease History: Denies: Hx Clostridium Difficile, Hx Hepatitis, Hx Human Immunodeficiency Virus (HIV), Hx of Known/Suspected MRSA, Hx Shingles, Hx Tuberculosis, Hx Known/ Suspected VRE, Hx Known/Suspected VRSA, History Other Infectious Disease, Traveled Outside the [place] in Last 30 Days - Family History Known Family History: Positive: Diabetes - maternal grandmother Negative: Cardiac Disease, Hypertension - Social History Occupation: Employed Part-time Lives: Alone Alcohol Use: Rare Alcohol Amount: MAYBE 1 DRINK/YEAR Substance Use Type: Reports: None Smoking Status (MU): Never Smoked Tobacco Have You Smoked in the Last Year: No Review of Systems Negative: Fever, Chills Negative: Erythema Negative: Sore Throat Negative: Chest Pain Negative: Shortness Of Breath, Cough Positive: Vomiting. Negative: Abdominal Pain, Diarrhea, Nausea Positive: flank pain. Negative: dysuria, hematuria Negative: Myalgia, Edema Negative: Rash Neurological: Other - Negative: dizziness All Other Systems Reviewed And Are Negative: Yes Physical Exam - Summary Physical Exam Summary: Constitutional: Well-developed, Well-nourished, Alert. (-) Distressed Skin: Warm, Dry HENT: Normocephalic; Atraumatic Eyes: Conjunctiva normal Neck: Musculoskeletal ROM normal neck. (-) JVD, (-) Stridor, (-) Tracheal deviation Cardio: Rhythm regular, rate normal, Heart sounds normal; Intact distal pulses; The pedal pulses are 2+ and symmetric. Radial pulses are 2+ and symmetric. (-) Murmur Pulmonary/Chest wall: Effort normal. (-) Respiratory distress, (-) Wheezes, (-) Rales Abd: suprapubic tenderness and R CVA tenderness, (-) Distension, (-) Guarding, ( -) Rebound Musculoskeletal: (-) Edema Lymph: (-) Cervical adenopathy Neuro: Alert, Oriented x3 Psych: Mood and affect Normal Triage Information Reviewed: Yes Vital Signs On Initial Exam: Initial Vitals Temp Pulse Resp BP Pulse Ox 98.5 F 76 18 115/63 99 07/14/17 10:54 07/14/17 10:54 07/14/17 10:54 07/14/17 10:54 07/14/17 10:54 Vital Signs Reviewed: Yes Diagnostics - Vital Signs Vital Signs Temp Pulse Resp BP Pulse Ox 07/14/17 12:30 78 104/57 98 07/14/17 12:00 75 101/53 97 07/14/17 11:30 84 106/59 97 07/14/17 11:22 86 97/46 98 07/14/17 11:20 87/45 07/14/17 10:54 98.5 F 76 18 115/63 99 - Laboratory Lab Results: Lab Results 07/14/17 07/14/17 Range/Units 11:34 11:34 WBC 6.0 (3.5-10.8) 10^3/ul RBC 4.47 (4.0-5.4) 10^6/ul Hgb 13.3 (12.0-16.0) g/dl Hct 40 (35-47) % MCV 88 (80-97) fL MCH 30 (27-31) pg MCHC 34 (31-36) g/dl RDW 14 (10.5-15) % Plt Count 265 (150-450) 10^3/ul MPV 7 L (7.4-10.4) um3 Neut % (Auto) 57.3 (38-83) % Lymph % (Auto) 33.8 (25-47) % Luna % (Auto) 7.3 (1-9) % Eos % (Auto) 0.9 (0-6) % Baso % (Auto) 0.7 (0-2) % Absolute Neuts (auto) 3.4 (1.5-7.7) 10^3/ul Absolute Lymphs (auto) 2.0 (1.0-4.8) 10^3/ul Absolute Monos (auto) 0.4 (0-0.8) 10^3/ul Absolute Eos (auto) 0.1 (0-0.6) 10^3/ul Absolute Basos (auto) 0 (0-0.2) 10^3/ul Absolute Nucleated RBC 0 10^3/ul Nucleated RBC % 0.1 Sodium 133 (133-145) mmol/L Potassium 3.6 (3.5-5.0) mmol/L Chloride 101 (101-111) mmol/L Carbon Dioxide 29 (22-32) mmol/L Anion Gap 3 (2-11) mmol/L BUN 11 (6-24) mg/dL Creatinine 0.71 (0.51-0.95) mg/dL Est GFR ( Amer) 119.8 (>60) Est GFR (Non-Af Amer) 93.1 (>60) BUN/Creatinine Ratio 15.5 (8-20) Glucose 76 (70-100) mg/dL Calcium 8.8 (8.6-10.3) mg/dL Total Bilirubin 0.60 (0.2-1.0) mg/dL AST 23 (13-39) U/L ALT 24 (7-52) U/L Alkaline Phosphatase 66 (34-104) U/L Total Protein 6.8 (6.4-8.9) g/dL Albumin 4.0 (3.2-5.2) g/dL Globulin 2.8 (2-4) g/dL Albumin/Globulin Ratio 1.4 (1-3) Result Diagrams: 07/14/17 11:34 07/14/17 11:34 Lab Statement: Any lab studies that have been ordered have been reviewed, and results considered in the medical decision making process. - CT abdomen/pelvis CT Interpretation: No Acute Changes CT Interpretation Completed By: Radiologist - THE RIGHT-SIDED HYDRONEPHROSIS NOTED ON SONOGRAPHY IS NOT CLEARLY EVIDENT ON THE CURRENT CT EXAMINATION. THERE IS NO APPRECIABLE NEPHROLITHIASIS. - Additional Comments Diagnostic Additional Comments: US renal reveals: THERE IS MILD RIGHT-SIDED HYDRONEPHROSIS. THERE IS ECHOGENIC MATERIAL WITHIN THE RIGHT RENAL PELVIS WHICH SUGGESTS COMPLEX FLUID, POSSIBLY IN THE SETTING OF UPPER URINARY TRACT INFECTION US gallbladder reveals: THE RIGHT HYDRONEPHROSIS NOTED ON THE PREVIOUS ULTRASOUND EXAMINATION IS NOT EVIDENT ON THE CURRENT EXAMINATION. NO ACUTE SONOGRAPHIC PATHOLOGY OF THE VISUALIZED PORTION OF THE ABDOMEN. Re-Evaluation - Re-Evaluation First Eval Re-Evaluation Time: 14:40 Change: Unchanged - The pt is still in significant pain. Second Eval Re-Evaluation Time: 16:33 Change: Unchanged - Pt reports pain in RUQ. Third Eval Re-Evaluation Time: 18:10 Change: Improved - The pt states she feels comfortable. Back Pain Course/Dx - Course Course Of Treatment: The CT and US do not show possible source of pain. CT and US no source for pain. There is no obvious sign of active UTI. The cultures are pending. Abx treatment will be based on cultures. Tramadol is prescribed to the pt for pain. - Diagnoses Provider Diagnoses: Flank pain Discharge - Discharge Plan Condition: Stable Disposition: HOME Prescriptions: traMADol TAB* [Ultram*] 50 mg PO Q6HR PRN #10 tab MDD 4 PRN Reason: Pain - Moderate To Severe Patient Education Materials: Flank Pain (ED) Referrals: Luis Fowler DO [Primary Care Provider] - 3 Days Additional Instructions: RETURN TO THE EMERGENCY DEPARTMENT FOR CHANGING OR WORSENING SYMPTOMS The documentation as recorded by the Dillon ofntaine Stephanie accurately reflects the service I personally performed and the decisions made by , Geovani Vazquez MD.
== END 2017-07-14 18:24 | disposition home or self-care (01) ==
LOC: ED 10:47
DX: N13.30 Unspecified hydronephrosis (principal); Z88.7 Allergy status to serum and vaccine; Z88.8 Allergy status to other drugs, medicaments and biological substances; Z88.3 Allergy status to other anti-infective agents; Z88.0 Allergy status to penicillin
CPT/HCPCS: 36415; 74176; 76705; 76775; 80053; 81003; 83605; 84702; 85025; 87040; 96361; 96374; 96375; 99285; A9270-GY; J1885; J2270; J2405

== ENCOUNTER 2017-07-27 22:16 | Emergency (ER) | payer SELFPAY ==
[2017-07-27] MEDS ORDERED: cefTRIAXone VIAL(*) 1,000 MG VIAL IM ONE (22:52)
[2017-07-27] MEDS ORDERED: diPHENhydraMINE IV* 50 MG/ML 1 ml VIAL (BENADRYL) IM ONE (22:53)
[2017-07-27] MEDS ORDERED: Phenazopyridine 200 mg (NF) 200 MG TAB PO ONE (22:53)
[2017-07-27] MEDS ORDERED: Lidocaine 1%* 5 ML VIAL ONE (22:58)
[2017-07-27 23:14] LABS: Urine Appearance Clear; Urine Blood 2+ (Negative); Urine Color Straw; Urine Ketones Negative (Negative); Urine Protein Negative (Negative); Urine Specific Gravity 1.003 (1.010-1.030); Urine Urobilinogen Negative (Negative)
[2017-07-27] MEDS ORDERED: Phenazopyridine TAB* 100 MG PO ONE (23:45)
[2017-07-28] MEDS ORDERED: Phenazopyridine TAB* 100 MG ONE (00:02)
[2017-07-28 00:15] VITALS: BP 107/60
--- NOTE | 2017-07-28 01:50 | ED ---
Maria De Jesus Maldonado Emily, scribed for Michael Ureña MD on 07/27/17 at 2255 . GI/ HPI - HPI Summary HPI Summary: This patient is a 36 year old M presenting to [facility] accompanied by family with a chief complaint of dysuria that began one week ago. Pt reports having urinary symptoms off and on since May,. The patient rates the pain 6/10 in severity. Symptoms aggravated by nothing. Symptoms alleviated by nothing. Patient reports increased urinary frequency, flank pain, and chills. Patient denies vaginal symptoms and fever. Pt reports seeing PCP for symptoms and being diagnosed with a kidney infection. - History of Current Complaint Chief Complaint: EDFlankPain Time Seen by Provider: 07/27/17 22:43 Stated Complaint: RT FLANK PAIN Hx Obtained From: Patient Hx Last Menstrual Period: 07/13/17 Onset/Duration: Started Weeks Ago, Worse Since - One week ago Timing: Intermittent, Lasting Days Severity: Moderate Current Severity: Moderate Pain Intensity: 6 Location of Pain: Flank Associated Signs and Symptoms: Positive: Other: - Positive increased urinary frequency, flank pain, and chills. Negative vaginal symptoms and fever - Allergy/Home Medications Allergies/Adverse Reactions: Allergies Allergy/AdvReac Type Severity Reaction Status Date / Time banana Allergy Vomiting Verified 07/14/17 13:51 cephalexin [From Keflex] Allergy Difficulty Verified 07/14/17 13:51 Breathing doxycycline Allergy Difficulty Verified 07/14/17 13:51 Breathing/Wheezing erythromycin base Allergy Difficulty Verified 07/14/17 13:51 [From Erythrocin] Breathing ibuprofen Allergy Hives Verified 07/14/17 13:51 levofloxacin [From Levaquin] Allergy Vomiting Verified 07/14/17 13:51 naproxen [From Naprosyn] Allergy Difficulty Verified 07/14/17 13:51 Breathing Penicillins Allergy Unknown Verified 07/14/17 13:51 Reaction Details sulfamethoxazole Allergy Difficulty Verified 07/14/17 13:51 [From Bactrim] Breathing tetanus and diphtheria Allergy Difficulty Verified 07/14/17 13:51 toxoids Breathing trimethoprim [From Bactrim] Allergy Difficulty Verified 07/14/17 13:51 Breathing ENVIRONMENTAL Allergy Eyes Uncoded 07/09/17 07:47 Itchy/Swollen/Red/Watery ibuprofen Allergy Hives Uncoded 07/09/17 07:47 muscle rel Allergy Vomiting Uncoded 07/14/17 13:51 MUSCLE RELAXANT Allergy SEVERE Uncoded 07/09/17 07:47 NAUSEA AND VOMITING BANANAS AdvReac Vomiting Uncoded 07/09/17 07:47 PMH/Surg Hx/FS Hx/Imm Hx Previously Healthy: No Endocrine/Hematology History: Denies: Hx Diabetes, Hx Thyroid Disease Cardiovascular History: Denies: Hx Hypertension, Hx Pacemaker/ICD Respiratory History: Reports: Hx Asthma, Hx Sleep Apnea, Other Respiratory Problems/Disorders - SINUS POLYPS Denies: Hx Chronic Obstructive Pulmonary Disease (COPD) GI History: Reports: Other GI Disorders - STATES TENDS TO GET NAUSEATED WITH PAIN & ANESTHESIA Denies: Hx Ulcer History: Reports: Hx Kidney Infection - FREQUENT HX OF LAST ONE 2 WEEKS AGO, Other Problems/Disorders - STATES EVERY TIME SHE IS CATHERIZED SHE GETS INFECTION Denies: Hx Renal Disease Musculoskeletal History: Reports: Hx Arthritis - BILATERAL JAW - TMJ, Hx Tendonitis - Hx OF, YEARS AGO, ARMS Sensory History: Reports: Hx Contacts or Glasses - WILL WEAR GLASSES DAY OF SURGERY Denies: Hx Hearing Aid Opthamlomology History: Reports: Hx Contacts or Glasses - WILL WEAR GLASSES DAY OF SURGERY Neurological History: Reports: Hx Migraine - UNDER CONTROL, Other Neuro Impairments/Disorders - NYSTAGUMUS Psychiatric History: Reports: Hx Anxiety - ON MED, Hx Depression Denies: Hx Panic Disorder - Surgical History Surgery Procedure, Year, and Place: TMJ SURGERY X2 2001, 2002. 2006. sinus surgery. [facility]. CAUTERIZED TEAR DUCTS Hx Anesthesia Reactions: No - Immunization History Date of Tetanus Vaccine: allergic to vaccine Date of Influenza Vaccine: fall 2015 Infectious Disease History: No Infectious Disease History: Denies: Hx Clostridium Difficile, Hx Hepatitis, Hx Human Immunodeficiency Virus (HIV), Hx of Known/Suspected MRSA, Hx Shingles, Hx Tuberculosis, Hx Known/ Suspected VRE, Hx Known/Suspected VRSA, History Other Infectious Disease, Traveled Outside the [place] in Last 30 Days - Family History Known Family History: Positive: Diabetes - maternal grandmother Negative: Cardiac Disease, Hypertension - Social History Occupation: Employed Part-time Lives: With Family Alcohol Use: Rare Alcohol Amount: MAYBE 1 DRINK/YEAR Substance Use Type: Reports: None Smoking Status (MU): Never Smoked Tobacco Have You Smoked in the Last Year: No Review of Systems Positive: Chills. Negative: Fever Positive: Other - Positive flank pain Positive: dysuria, frequency, other - Negative vaginal symptoms All Other Systems Reviewed And Are Negative: Yes Physical Exam - Summary Physical Exam Summary: Appearance: Well appearing, no pain distress Skin: warm, dry, reflects adequate perfusion Head/face: normal Eyes: EOMI, MARCIO ENT: normal Neck: supple, non-tender Respiratory: CTA, breath sounds present Cardiovascular: RRR, pulses symmetrical Abdomen: non-tender, soft Bowel: present Musculoskeletal: normal, strength/ROM intact Neuro: normal, sensory motor intact, A&Ox3 Triage Information Reviewed: Yes Vital Signs On Initial Exam: Initial Vitals Temp Pulse Resp BP Pulse Ox 97 F 96 18 112/97 100 07/27/17 22:26 07/27/17 22:26 07/27/17 22:26 07/27/17 22:26 07/27/17 22:26 Vital Signs Reviewed: Yes Diagnostics - Vital Signs Vital Signs Temp Pulse Resp BP Pulse Ox 07/27/17 22:26 97 F 96 18 112/97 100 - Laboratory Lab Results: Lab Results 07/27/17 Range/Units 22:53 Urine Color Straw Urine Appearance Clear Urine pH 5.0 (5-9) Ur Specific [place] 1.003 L (1.010-1.030) Urine Protein Negative (Negative) Urine Ketones Negative (Negative) Urine Blood 2+ A (Negative) Urine Nitrate Negative (Negative) Urine Bilirubin Negative (Negative) Urine Urobilinogen Negative (Negative) Ur Leukocyte Esterase 3+ A (Negative) Urine WBC (Auto) 2+(11-20/hpf) A (Absent) Urine RBC (Auto) Trace(0-2/hpf) (Absent) Ur Squamous Epith Cells Present A (Absent) Urine Bacteria Absent (Absent) Urine Glucose Negative (Negative) Lab Statement: Any lab studies that have been ordered have been reviewed, and results considered in the medical decision making process. GIGU Course/Dx - Course Course Of Treatment: Pt with recurrent UTI and hx of medication sensitivity. IM rocephin here with benadryl. Given pyridium with relief. To f/u with PCP and Uro to eval for complicating causes like IC. - Diagnoses Differential Diagnoses - Female: Other - UTI, Interstitial cystitis Provider Diagnoses: Recurrent UTI (urinary tract infection) Discharge - Discharge Plan Condition: Good Disposition: HOME Prescriptions: Nitrofurantoin Macrocrystals* [Macrodantin*] 100 mg PO BID #28 cap Phenazopyridine 200 mg (NF) [Pyridium 200 MG tab *] 200 mg PO TID #9 tab Patient Education Materials: Urinary Tract Infection in Women (ED) Referrals: Luis Fowler DO [Primary Care Provider] - Additional Instructions: Call Sunday for follow up with your doctor -- they may consider referring you to Urology to evaluate for entities such as Interstitial Cystitis and other conditions that can cause recurring infection. Drink plenty of cranberry juice, fluids. Return if worse, vomiting, fevers or other concerns. The documentation as recorded by the Maria De Jesus fontaine Emily accurately reflects the service I personally performed and the decisions made by me, Michael Ureña MD.
== END 2017-07-28 00:13 | disposition home or self-care (01) ==
LOC: ED 22:16
DX: N39.0 Urinary tract infection, site not specified (principal); Z88.6 Allergy status to analgesic agent; Z88.3 Allergy status to other anti-infective agents; Z88.0 Allergy status to penicillin; Z88.2 Allergy status to sulfonamides; Z88.7 Allergy status to serum and vaccine; Z88.8 Allergy status to other drugs, medicaments and biological substances
CPT/HCPCS: 81003; 81015; 87086; 87491; 87591; 96372; 99283; A9270-GY; J0696; J1200

== ENCOUNTER 2018-01-04 14:31 | Emergency (ER) | payer MEDICAID ==
[2018-01-04 15:13] VITALS: BP 107/61
[2018-01-04] MEDS ORDERED: Acetaminophen TAB* 325 MG PO ONE (16:14)
--- NOTE | 2018-01-04 16:32 | UC ---
Complaint Female HPI - HPI Summary HPI Summary: Per transmitter tester "Difficulty urinating, frequency and urgency, dysuria, chills, fever, and lower back pain since this morning. Taking excedrin extra strength prn w/ some fever/pain relief, last taken today 1200. Also taking pyridium prn w / relief- last dose 1200. " -sx started this morning. she has required IV abx in ER for UTIs in past d/t multiple drug allergies. she doesnt feel she is at this point. + frequency w/ little output, burning. no n/v. slight LBP - History Of Current Complaint Chief Complaint: UCGU Stated Complaint: URINARY Time Seen by Provider: 01/04/18 16:25 Hx Last Menstrual Period: MIRENA IUD Pain Intensity: 5 - Allergies/Home Medications Allergies/Adverse Reactions: Allergies Allergy/AdvReac Type Severity Reaction Status Date / Time cephalexin [From Keflex] Allergy Difficulty Verified 01/04/18 15:02 Breathing doxycycline Allergy Difficulty Verified 01/04/18 15:02 Breathing/Wheezing erythromycin base Allergy Difficulty Verified 01/04/18 15:02 [From Erythrocin] Breathing ibuprofen Allergy Hives Verified 01/04/18 15:02 levofloxacin [From Levaquin] Allergy Vomiting Verified 01/04/18 15:02 naproxen [From Naprosyn] Allergy Difficulty Verified 01/04/18 15:02 Breathing Penicillins Allergy Unknown Verified 01/04/18 15:02 Reaction Details sulfamethoxazole Allergy Difficulty Verified 01/04/18 15:02 [From Bactrim] Breathing tetanus and diphtheria Allergy Difficulty Verified 01/04/18 15:02 toxoids Breathing trimethoprim [From Bactrim] Allergy Difficulty Verified 01/04/18 15:02 Breathing ENVIRONMENTAL Allergy Eyes Uncoded 01/04/18 15:02 Itchy/Swollen/Red/Watery ibuprofen Allergy Hives Uncoded 01/04/18 15:02 MUSCLE RELAXANT Allergy SEVERE Uncoded 01/04/18 15:02 NAUSEA AND VOMITING Home Medications: Home Medications Acetaminophen with Codeine [Acetaminophen-Cod #3 Tablet] 1 tab TID PRN 01/04/18 [History Confirmed 01/04/18] Iron,Carb/Vit C/Vit B12/Folic [Iron 100 Plus Tablet] 1 tab DAILY 01/04/18 [ History Confirmed 01/04/18] Selenium 1 tab DAILY 01/04/18 [History Confirmed 01/04/18] Zolpidem TAB* [Ambien*] 1 tab QPM 01/04/18 [History Confirmed 01/04/18] PMH/Surg Hx/FS Hx/Imm Hx Previously Healthy: Yes Neurological History: Seizures Psychological History: Anxiety, Depression - Surgical History Surgical History: Yes Surgery Procedure, Year, and Place: TMJ SURGERY x2 2001, 2002. 2006. sinus surgery. [facility]. CAUTERIZED TEAR DUCTS - Family History Known Family History: Positive: Diabetes - maternal grandmother Negative: Cardiac Disease, Hypertension - Social History Alcohol Use: Rare Alcohol Amount: MAYBE 1 DRINK/YEAR Substance Use Type: None Smoking Status (MU): Never Smoked Tobacco Have You Smoked in the Last Year: No - Immunization History Most Recent Tetanus Shot: allergic to tetanus (last tetanus 2006) Review of Systems Constitutional: Negative Skin: Negative Eyes: Negative ENT: Negative Respiratory: Negative Cardiovascular: Negative Gastrointestinal: Negative Genitourinary: Dysuria, Frequency, Urgency Motor: Negative Neurovascular: Negative Musculoskeletal: Negative Neurological: Negative Psychological: Negative Is Patient Immunocompromised?: No All Other Systems Reviewed And Are Negative: Yes Physical Exam Triage Information Reviewed: Yes Appearance: Pain Distress - appears somehwat uncomfortable. uses bathroom frequently during time here Vital Signs: Initial Vital Signs Temp 97.7 F 01/04/18 15:07 Pulse 69 01/04/18 15:07 Resp 16 01/04/18 15:07 BP 107/61 01/04/18 15:07 Pulse Ox 99 01/04/18 15:07 Vital Signs Reviewed: Yes Eye Exam: Normal ENT Exam: Normal ENT: Positive: Pharynx normal Neck exam: Normal Neck: Positive: Supple, Nontender, No Lymphadenopathy Respiratory Exam: Normal Respiratory: Positive: Lungs clear, Normal breath sounds, No respiratory distress, No accessory muscle use Cardiovascular: Positive: RRR Abdomen Description: Positive: Soft, Other: - + suprapubic tenderness. Negative : CVA Tenderness (R), CVA Tenderness (L), Distended, Guarding Bowel Sounds: Positive: Present Musculoskeletal Exam: Normal Neurological Exam: Normal Psychological Exam: Normal Skin Exam: Normal Complaint Female Dx - Course Course Of Treatment: UA - not done bc she takes pyridium. cx ordered. clinically c/w UTI - Differential Dx/Diagnosis Differential Diagnosis/HQI/PQRI: Urinary Tract Infection Provider Diagnoses: UTI Discharge - Sign-Out/Discharge Documenting (check all that apply): Patient Departure - Discharge Plan Condition: Stable Disposition: HOME Prescriptions: Nitrofurantoin Monohyd/M-Cryst [Macrobid 100 mg Capsule] 100 mg PO BID 7 Days # 14 cap Phenazopyridine TAB* [Pyridium 100 mg TAB*] 100 mg PO TID 3 Days #9 tab Patient Education Materials: Urinary Tract Infection in Women (ED) Referrals: Luis Fowler DO [Primary Care Provider] - 3 Days Additional Instructions: -We have given you the first dose of nitrofurantoin here along with some tylenol for the pain. You should feel somewhat better by morning. If your symptoms are worse or not any better by morning, I recommend that you go to the ER. You said that you have had to receive IV antibiotics in the past due to your multiple drug allergies. This may be necessary if there is no improvement or worsening by morning. - Billing Disposition and Condition Condition: STABLE Disposition: Home
[2018-01-04] MEDS ORDERED: Nitrofurantoin Macrocrystals* 50 MG CAP PO ONE (16:45)
== END 2018-01-04 16:58 | disposition home or self-care (01) ==
LOC: UCCORT 14:31
DX: N39.0 Urinary tract infection, site not specified (principal); B96.20 Unspecified Escherichia coli [E. coli] as the cause of diseases classified elsewhere; Z88.1 Allergy status to other antibiotic agents; Z88.6 Allergy status to analgesic agent; Z88.0 Allergy status to penicillin
CPT/HCPCS: 84702; 87077; 87086; 87186; 99212; A9270-GY; G0463

== ENCOUNTER 2018-01-20 07:05 | Emergency (ER) | payer MEDICAID ==
--- NOTE | 2018-01-20 07:13 | UC ---
Complaint Female HPI - HPI Summary HPI Summary: Patient is 35 year old female who presents with increased urinary frequency since last night. She was treated 2 weeks ago for urinary tract infection with Macrobid . She reports that she notices urinary symptoms after she has sex most of the times. She had sex 2 days ago. She denies any dysuria or hematuria She also reports noticing right lumbar back pain since last night, it is localized to right low back and does not radiate. She denies any injury. She denies any numbness tingling or irregular symptoms. Denies any saddle anesthesia or incontinence. She notices pain at rest, that worsens with movement. Bending, extension and side movements are painful. No skin rash.Denies any fever, chills, cough chest pain or shortness of breath . No diaphoresis. Denies any abdominal pain , nausea or vomiting , diarrhea or constipation. So far she has not taken any medication. - History Of Current Complaint Stated Complaint: URINARY Time Seen by Provider: 01/20/18 07:06 Hx Obtained From: Patient Hx Last Menstrual Period: MIRENA IUD ?: No - IUD Onset/Duration: Sudden Onset - Allergies/Home Medications Allergies/Adverse Reactions: Allergies Allergy/AdvReac Type Severity Reaction Status Date / Time cephalexin [From Keflex] Allergy Difficulty Verified 01/20/18 07:12 Breathing doxycycline Allergy Difficulty Verified 01/20/18 07:12 Breathing/Wheezing erythromycin base Allergy Difficulty Verified 01/20/18 07:12 [From Erythrocin] Breathing ibuprofen Allergy Hives Verified 01/20/18 07:12 levofloxacin [From Levaquin] Allergy Vomiting Verified 01/20/18 07:12 naproxen [From Naprosyn] Allergy Difficulty Verified 01/20/18 07:12 Breathing Penicillins Allergy Unknown Verified 01/20/18 07:12 Reaction Details sulfamethoxazole Allergy Difficulty Verified 01/20/18 07:12 [From Bactrim] Breathing tetanus and diphtheria Allergy Difficulty Verified 01/20/18 07:12 toxoids Breathing trimethoprim [From Bactrim] Allergy Difficulty Verified 01/20/18 07:12 Breathing ENVIRONMENTAL Allergy Eyes Uncoded 01/20/18 07:12 Itchy/Swollen/Red/Watery ibuprofen Allergy Hives Uncoded 01/20/18 07:12 MUSCLE RELAXANT Allergy SEVERE Uncoded 01/20/18 07:12 NAUSEA AND VOMITING Home Medications: Home Medications Levonorgestrel (Iud) [Mirena IUD] 20 mcg IU 01/20/18 [History] PMH/Surg Hx/FS Hx/Imm Hx Previously Healthy: Yes Other Endocrine History: negative Other Cardiovascular History: negative Other GI/ History: negative Other Neurological History: negative Other Psychological History: negative Other Cancer History: negative - Surgical History Surgical History: Yes Surgery Procedure, Year, and Place: TMJ SURGERY x2 2001, 2002. 2006. sinus surgery. [facility]. CAUTERIZED TEAR DUCTS - Family History Known Family History: Positive: Diabetes - maternal grandmother Negative: Cardiac Disease, Hypertension - Social History Alcohol Use: Rare Alcohol Amount: MAYBE 1 DRINK/YEAR Substance Use Type: None Smoking Status (MU): Never Smoked Tobacco Have You Smoked in the Last Year: No - Immunization History Most Recent Tetanus Shot: allergic to tetanus (last tetanus 2006) Review of Systems Constitutional: Negative Skin: Negative Eyes: Negative ENT: Negative Respiratory: Negative Cardiovascular: Negative Gastrointestinal: Negative Genitourinary: Frequency, Urgency Motor: Negative Neurovascular: Negative Musculoskeletal: Other: - Right lumbar low back pain and paraspinal area Painful range of motion. Neurological: Negative Psychological: Negative Is Patient Immunocompromised?: No All Other Systems Reviewed And Are Negative: Yes Physical Exam - Summary Physical Exam Summary: Physical Exam: Const: Appears well. No signs of apparent distress present. Alert and oriented x 3. Musculo: Walks with a normal gait. Head/Face: Atraumatic, normocephalic on inspection. Eyes: EOMI and PERRLA in both eyes. Conjunctivae clear. No discharge noted ENT: Hearing normal, TM normal appearing bilaterally . Respiratory: Respirations are unlabored. Lungs clear to auscultation bilaterally, no wheezing , rhonchi or rales noted . CVS: Regular rate and Rhythm, S1S2 normal , no murmurs identified. Extremities: Peripheral circulation is grossly normal. Pulses 2+ Abdomen : Soft non tender , nondistended , Bowel sounds present . No guarding , rebound tenderness or rigidity noted. right CVA tenderness noted. Skin: No lesions or rash located on the upper extremities or on the lower extremities. Neuro: Cranial nerves II to XII intact, motor and sensory intact. DTR Intact bilaterally. Mood is normal. Affect is normal. Spine: Const: alert and oriented X 3. No signs of apparent distress present. Musculo: Walks with a normal gait. Spine: No loss of the normal lumbar lordosis or step-off. No midline tenderness, there is right sided paraspinal tenderness spine noted in the lumbar area. There is tenderness of the costovertebral angle on the right side Stability: No obvious instability. Strength: Flexion, extension, left rotation, left lateral bending, right lateral bending and right rotation strength is ROM: Full but painful and every movement Special Tests: Straight leg raise is negative bilaterally. Neuro: Sensation intact to light touch. Motor and sensory intact. Reflexes: Left DTR's are intact. Right DTR's are intact. Toes downgoing. Coordination normal. Distal pulses intact. Triage Information Reviewed: Yes Vital Signs Reviewed: Yes Complaint Female Dx - Course Course Of Treatment: During the visit today, we obtained Urinalysis that shows leukoesterase positive and nitrite negative. Plan to send it for culture. Since she has low back pain on right side, plan to cover for early pyelonephritis . It might be right low lumbar strain but the possibility of early pyelonephritis cannot be ruled out. Since she is allergic to NSAIDS , she will take tylenol for back pain. We discussed the findings and further plan. I will prescribe the medication to the pharmacy . Since she develops yeast infection after the antibiotics, I will also prescribe one dose of fluconazole. Patient expressed understanding . - Differential Dx/Diagnosis Provider Diagnoses: Urinary tract infection. Right low back pain Discharge - Sign-Out/Discharge Documenting (check all that apply): Patient Departure All imaging exams completed and their final reports reviewed: No Studies - Discharge Plan Condition: Stable Disposition: HOME Prescriptions: Fluconazole [Fluconazole 150 mg tab] 150 mg PO ONCE #1 tablet levoFLOXacin [Levofloxacin] 750 mg PO DAILY 7 Days #7 tablet Patient Education Materials: Urinary Tract Infection in Women (ED), Low Back Strain (ED) Referrals: Luis Fowler DO [Primary Care Provider] - (2- 3 days) Additional Instructions: Start taking . It has been prescribed to the pharmacy . Follow up with your primary care doctor in 2-3 days. Return to Urgent care / ER if symptoms get worse. - Billing Disposition and Condition Condition: STABLE Disposition: Home
[2018-01-20 07:23] VITALS: BP 95/58
== END 2018-01-20 08:06 | disposition home or self-care (01) ==
LOC: UCCORT 07:05
DX: N39.0 Urinary tract infection, site not specified (principal); Z88.1 Allergy status to other antibiotic agents; M54.5 Low back pain; Z88.0 Allergy status to penicillin; Z88.2 Allergy status to sulfonamides; Z88.7 Allergy status to serum and vaccine; Z88.8 Allergy status to other drugs, medicaments and biological substances; Z91.09 Other allergy status, other than to drugs and biological substances
CPT/HCPCS: 81003; 87086; 99212; G0463

== ENCOUNTER 2018-03-11 21:30 | Emergency (ER) | payer OTHER ==
--- NOTE | 2018-03-11 23:54 | ED ---
Influenza-Like Illness - HPI Summary HPI Summary: Patient has multiple complaints: Complains of one episode of near-syncope yesterday. Complains of exertional shortness of breath for the past few days. History of asthma. Complains of migraine headaches persistent for 2 weeks. History of migraines. Accompanied with photophobia, N/V. Bilateral TMJ pain, left ear pain. History of TMJ reconstruction 2. Left side neck pain and stiffness. Increased urinary frequency. Denies any pain, burning with urination. Denies hematuria. One episode today of heart rate dropping into the 40s. Patient states she was warned by her apple watch and then checked her pulse manually. 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 Episode lasted a few minutes. Also complains of spontaneous bruising on her left thigh with pain and tenderness from left hip down to left knee starting this evening. Denies trauma , prior history of spontaneous bruising, bleeding disorder. Complains of waking up this morning with hives and generalized itching which resolved with Benadryl. No return of symptoms. Complains of mild cough and sore throat starting this a.m. Denies fever, CP, V/D, abdominal pain, change in urine, change in BM. 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 Currently on OCPs. Denies smoking, EtOH, recreational drug use. 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 - History of Current Complaint Chief Complaint: EDSyncope Time Seen by Provider: 03/11/18 22:51 Hx Obtained From: Patient Onset/Duration: Gradual Onset, Lasting Days Severity: Moderate Associated Signs & Symptoms: Myalgia, Cough, Sore Throat, Headache - Allergy/Home Medications Allergies/Adverse Reactions: Allergies Allergy/AdvReac Type Severity Reaction Status Date / Time cephalexin [From Keflex] Allergy Difficulty Verified 01/20/18 07:12 Breathing doxycycline Allergy Difficulty Verified 01/20/18 07:12 Breathing/Wheezing erythromycin base Allergy Difficulty Verified 01/20/18 07:12 [From Erythrocin] Breathing ibuprofen Allergy Hives Verified 01/20/18 07:12 levofloxacin [From Levaquin] Allergy Vomiting Verified 01/20/18 07:12 naproxen [From Naprosyn] Allergy Difficulty Verified 01/20/18 07:12 Breathing Penicillins Allergy Unknown Verified 01/20/18 07:12 Reaction Details sulfamethoxazole Allergy Difficulty Verified 01/20/18 07:12 [From Bactrim] Breathing tetanus and diphtheria Allergy Difficulty Verified 01/20/18 07:12 toxoids Breathing trimethoprim [From Bactrim] Allergy Difficulty Verified 01/20/18 07:12 Breathing ENVIRONMENTAL Allergy Eyes Uncoded 01/20/18 07:12 Itchy/Swollen/Red/Watery ibuprofen Allergy Hives Uncoded 01/20/18 07:12 MUSCLE RELAXANT Allergy SEVERE Uncoded 01/20/18 07:12 NAUSEA AND VOMITING PMH/Surg Hx/FS Hx/Imm Hx Endocrine/Hematology History: Denies: Hx Diabetes, Hx Thyroid Disease Cardiovascular History: Denies: Hx Hypertension, Hx Pacemaker/ICD Respiratory History: Reports: Hx Asthma, Hx Sleep Apnea, Other Respiratory Problems/Disorders - SINUS POLYPS Denies: Hx Chronic Obstructive Pulmonary Disease (COPD) GI History: Reports: Other GI Disorders - STATES TENDS TO GET NAUSEATED WITH PAIN & ANESTHESIA Denies: Hx Ulcer History: Reports: Hx Kidney Infection - FREQUENT HX OF LAST ONE 2 WEEKS AGO, Other Problems/Disorders - STATES EVERY TIME SHE IS CATHERIZED SHE GETS INFECTION Denies: Hx Renal Disease Musculoskeletal History: Reports: Hx Arthritis - BILATERAL JAW - TMJ, Hx Tendonitis - Hx OF, YEARS AGO, ARMS Sensory History: Reports: Hx Contacts or Glasses - WILL WEAR GLASSES DAY OF SURGERY Denies: Hx Hearing Aid Opthamlomology History: Reports: Hx Contacts or Glasses - WILL WEAR GLASSES DAY OF SURGERY Neurological History: Reports: Hx Migraine - UNDER CONTROL, Other Neuro Impairments/Disorders - NYSTAGUMUS Psychiatric History: Reports: Hx Anxiety - ON MED, Hx Depression Denies: Hx Panic Disorder - Surgical History Surgery Procedure, Year, and Place: TMJ SURGERY x2 2001, 2002. 2006. sinus surgery. [facility]. CAUTERIZED TEAR DUCTS Hx Anesthesia Reactions: No - Immunization History Date of Tetanus Vaccine: allergic to vaccine Date of Influenza Vaccine: fall 2015 Infectious Disease History: No Infectious Disease History: Denies: Hx Clostridium Difficile, Hx Hepatitis, Hx Human Immunodeficiency Virus (HIV), Hx of Known/Suspected MRSA, Hx Shingles, Hx Tuberculosis, Hx Known/ Suspected VRE, Hx Known/Suspected VRSA, History Other Infectious Disease, Traveled Outside the [place] in Last 30 Days - Family History Known Family History: Positive: Diabetes - maternal grandmother Negative: Cardiac Disease, Hypertension - Social History Alcohol Use: Rare Alcohol Amount: MAYBE 1 DRINK/YEAR Substance Use Type: Reports: None Smoking Status (MU): Never Smoked Tobacco Have You Smoked in the Last Year: No Review of Systems Constitutional: Negative Positive: Photophobia Positive: Sore Throat, Ear Ache Cardiovascular: Negative Positive: Shortness Of Breath, Cough Positive: Nausea Positive: frequency Positive: Myalgia Positive: Bruising Positive: Headache Psychological: Normal All Other Systems Reviewed And Are Negative: Yes Physical Exam - Summary Physical Exam Summary: Patient has somewhat flat affect. Alert and oriented, nontoxic appearing. No work of breathing noted. ENT exam normal. Tenderness to palpation along left sternal cleidomastoid and left trapezius muscles. Tenderness behind left ear and left side scalp. Mildly erythematous rash present behind ear and under her hair on left side head.. No evidence of vesicles to suggest shingles. No evidence of lesions or rash on face or around eyes. Mild discomfort with full flexion of neck. Tenderness to palpation of bruising on the left lateral side. Patient able to flex and extend left knee and left hip with full range of motion. Abdomen soft nontender. Neuro exam normal. Triage Information Reviewed: Yes Vital Signs On Initial Exam: Initial Vitals Temp Pulse Resp BP Pulse Ox 98.1 F 92 16 128/79 99 03/11/18 21:42 03/11/18 21:42 03/11/18 21:42 03/11/18 21:42 03/11/18 21:42 Vital Signs Reviewed: Yes Appearance: Positive: Well-Appearing Skin: Positive: Warm Head/Face: Positive: Normal Head/Face Inspection Eyes: Positive: Normal ENT: Positive: Normal ENT inspection Neck: Positive: Tenderness @. Negative: Nuchal Rigidity Respiratory/Lung Sounds: Positive: Clear to Auscultation Cardiovascular: Positive: Normal Abdomen Description: Positive: Nontender Musculoskeletal: Positive: Normal Neurological: Positive: Normal Psychiatric: Positive: Normal AVPU Assessment: Alert - Mayo Coma Scale Best Eye Response: 4 - Spontaneous Best Motor Response: 6 - Obeys Commands Best Verbal Response: 5 - Oriented Coma Scale Total: 15 Diagnostics - Vital Signs Vital Signs Temp Pulse Resp BP Pulse Ox 03/11/18 23:29 68 13 109/69 98 03/11/18 23:01 74 98 03/11/18 22:59 77 125/80 99 03/11/18 21:42 98.1 F 92 16 128/79 99 - Laboratory Result Diagrams: 03/11/18 23:54 03/11/18 23:54 Lab Statement: Any lab studies that have been ordered have been reviewed, and results considered in the medical decision making process. Flu Symptom Course/Dx - Course Course Of Treatment: Patient has multiple complaints: Complains of one episode of near-syncope yesterday. Complains of exertional shortness of breath for the past few days. History of asthma. Complains of migraine headaches persistent for 2 weeks. History of migraines. Accompanied with photophobia, N/V. Bilateral TMJ pain, left ear pain. History of TMJ reconstruction 2. Left side neck pain and stiffness. Increased urinary frequency. Denies any pain, burning with urination. Denies hematuria. One episode today of heart rate dropping into the 40s. Patient states she was warned by her apple watch and then checked her pulse manually. 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 Episode lasted a few minutes. Also complains of spontaneous bruising on her left thigh with pain and tenderness from left hip down to left knee starting this evening. Denies trauma, prior history of spontaneous bruising, bleeding disorder. Complains of waking up this morning with hives and generalized itching which resolved with Benadryl. No return of symptoms. Complains of mild cough and sore throat starting this a.m. Denies fever, CP, V/D, abdominal pain, change in urine, change in BM. 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 Currently on OCPs. Denies smoking, EtOH, recreational drug use. 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 Physical exam:Patient has somewhat flat affect. Alert and oriented, nontoxic appearing. No work of breathing noted. ENT exam normal. Tenderness to palpation along left sternal cleidomastoid and left trapezius muscles. Tenderness behind left ear and left side scalp. Mildly erythematous rash present behind ear and under her hair on left side head.. No evidence of vesicles to suggest shingles. No evidence of lesions or rash on face or around eyes. Mild discomfort with full flexion of neck. Tenderness to palpation of bruising on the left lateral side. Patient able to flex and extend left knee and left hip with full range of motion. Abdomen soft nontender. Neuro exam normal. Vital signs within normal limits. Chest x-ray unremarkable. EKG unremarkable. Labs unremarkable. Negative for flu and strep. Headache improved from 01/04-09/04 with migraine cocktail. Likely viral syndrome. - Diagnoses Provider Diagnoses: Viral syndrome Discharge - Sign-Out/Discharge Documenting (check all that apply): Patient Departure - Discharge Plan Condition: Stable Disposition: HOME Prescriptions: Metoclopramide TAB* [Reglan TAB*] 10 mg PO BID 2 Days #4 tab Patient Education Materials: Viral Syndrome (ED) Forms: *School Release Referrals: Luis Fowler DO [Primary Care Provider] - Additional Instructions: Follow-up with primary care. Return to the ED for any new or worsening symptoms - Billing Disposition and Condition Condition: STABLE Disposition: Home
[2018-03-12 00:01] LABS: ABS Basophils 0 10^3/ul (0-0.2); ABS Eosinophils 0.1 10^3/ul (0-0.6); ABS Monocytes 0.4 10^3/ul (0-0.8); ABS Neutrophils 2.5 10^3/ul (1.5-7.7); ABS Nucleated RBC 0 10^3/ul; Eosinophil % 1.1 % (0-6); Hematocrit 38 % (35-47); Hemoglobin 13.1 g/dl (12.0-16.0); Lymphocyte % 49.5 % (25-47); Mean Corpuscular HGB Conc 34 g/dl (31-36); Mean Corpuscular Hemoglobin 31 pg (27-31); Mean Corpuscular Volume 89 fL (80-97); Mean Platelet Volume 7.8 um3 (7.4-10.4); Nucleated Red Blood Cells % 0.2; Platelet Count 243 10^3/ul (150-450); Red Blood Count 4.29 10^6/ul (4.00-5.40); Red Cell Distribution Width 13 % (10.5-15)
[2018-03-12 00:21] LABS: EGFR Non-African American 68.7 (>60)
[2018-03-12] MEDS ORDERED: Acetaminophen TAB* 325 MG PO ONE (00:35)
[2018-03-12] MEDS ORDERED: Metoclopramide IV* 5 MG/ML 2 ML VIAL IV ONE (00:35)
[2018-03-12] MEDS ORDERED: diPHENhydraMINE IV* 50 MG/ML 1 ml VIAL (BENADRYL) IV ONE (00:36)
[2018-03-12 02:15] VITALS: BP 102/59
--- NOTE | 2018-03-12 07:57 | RAD ---
INDICATION: Syncope COMPARISON: Most recent comparison chest x-rays dated March 24, 2009 TECHNIQUE: Single AP portable view of the chest was obtained. FINDINGS: Image quality is compromised due to the relative inferiority of a portable chest x-ray. The heart and mediastinum exhibit normal size and contour. The lungs are grossly clear. There is no evidence of a large pleural effusion. Visualized bones are normal for the patient's age. IMPRESSION: No radiographic evidence for acute cardiopulmonary abnormality on this portable chest x-ray. R0
== END 2018-03-12 02:46 | disposition home or self-care (01) ==
LOC: ED 21:30
DX: B34.9 Viral infection, unspecified (principal); R06.02 Shortness of breath; R35.0 Frequency of micturition; R23.3 Spontaneous ecchymoses; F41.9 Anxiety disorder, unspecified; Z88.6 Allergy status to analgesic agent; Z88.1 Allergy status to other antibiotic agents; Z88.0 Allergy status to penicillin; Z88.2 Allergy status to sulfonamides; Z88.7 Allergy status to serum and vaccine
CPT/HCPCS: 36415; 71045; 80053; 80320; 83735; 84443; 84484; 84702; 85025; 86140; 87651; 93005; 96374; 96375; 99283; A9270-GY; G0480; J1200; J2765

== ENCOUNTER 2018-03-14 20:28 | Emergency (ER) | payer OTHER ==
--- NOTE | 2018-03-14 21:17 | ED ---
Headache - HPI Summary HPI Summary: This pt is a 37 y/o female presenting to [facility] c/o headache today since around 16:00. Mother reports that at 19:30 today pt ambulated into the living room and sat down on the couch. Mother states the pt couldn't speak and had her face and hands "scrunched up." Mother called the ambulance and pt was brought to the ED. Per mother, pt has been having migraines more often and has had a migraine every day in the last 3 weeks. Today pt reports her headache is located on the right side of her head. She notes photophobia. Denies nausea, vomiting, abd pain , fever. She took Excedrin today at 16:00 without relief. 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 Pt was in the ED 2 days ago for the same headache and sudden onset of bruise on left leg. PMHx includes migraines, depression (for which she takes Fluoxetine) , pituitary tumor without surgery (treated with medications for the past 1 year), TMJ sydrome. She takes Keppra every day to prevent migraines, prescribed by Dr. Fowler. Her last brain MRI was a few years ago. Pt is followed up by Dr. Burt. She does not have a neurosurgeon. - History Of Current Complaint Chief Complaint: EDHeadache Stated Complaint: HEADACHE Time Seen by Provider: 03/14/18 20:55 Hx Obtained From: Patient, Family/Coin Box Collector - Mother Hx Last Menstrual Period: MIRENA IUD Onset/Duration: Started hours ago, Still Present Currently Pain Is: Severe Timing: Hours Character: Migraine Location of Headache: Parietal - right side Aggravating Factor: Nothing Allevating Factors: Nothing Associated Signs And Symptoms: Other (Noted In Comments) - POS: photophobia. NEG : fever, nausea, vomiting - Allergies/Home Medications Allergies/Adverse Reactions: Allergies Allergy/AdvReac Type Severity Reaction Status Date / Time cephalexin [From Keflex] Allergy Difficulty Verified 03/14/18 21:19 Breathing doxycycline Allergy Difficulty Verified 03/14/18 21:19 Breathing/Wheezing erythromycin base Allergy Difficulty Verified 03/14/18 21:19 [From Erythrocin] Breathing ibuprofen Allergy Hives Verified 03/14/18 21:19 levofloxacin [From Levaquin] Allergy Vomiting Verified 03/14/18 21:19 naproxen [From Naprosyn] Allergy Difficulty Verified 10/18/18 21:19 Breathing Penicillins Allergy Unknown Verified 03/14/18 21:19 Reaction Details sulfamethoxazole Allergy Difficulty Verified 03/14/18 21:19 [From Bactrim] Breathing tetanus and diphtheria Allergy Difficulty Verified 03/14/18 21:19 toxoids Breathing trimethoprim [From Bactrim] Allergy Difficulty Verified 03/14/18 21:19 Breathing ENVIRONMENTAL Allergy Eyes Uncoded 01/20/18 07:12 Itchy/Swollen/Red/Watery ibuprofen Allergy Hives Uncoded 01/20/18 07:12 MUSCLE RELAXANT Allergy SEVERE Uncoded 01/20/18 07:12 NAUSEA AND VOMITING PMH/Surg Hx/FS Hx/Imm Hx Endocrine/Hematology History: Denies: Hx Diabetes, Hx Thyroid Disease Cardiovascular History: Denies: Hx Hypertension, Hx Pacemaker/ICD Respiratory History: Reports: Hx Asthma, Hx Sleep Apnea, Other Respiratory Problems/Disorders - SINUS POLYPS Denies: Hx Chronic Obstructive Pulmonary Disease (COPD) GI History: Reports: Other GI Disorders - STATES TENDS TO GET NAUSEATED WITH PAIN & ANESTHESIA Denies: Hx Ulcer History: Reports: Hx Kidney Infection - FREQUENT HX OF LAST ONE 2 WEEKS AGO, Other Problems/Disorders - STATES EVERY TIME SHE IS CATHERIZED SHE GETS INFECTION Denies: Hx Renal Disease Musculoskeletal History: Reports: Hx Arthritis - BILATERAL JAW - TMJ, Hx Tendonitis - Hx OF, YEARS AGO, ARMS Sensory History: Reports: Hx Contacts or Glasses - WILL WEAR GLASSES DAY OF SURGERY Denies: Hx Hearing Aid Opthamlomology History: Reports: Hx Contacts or Glasses - WILL WEAR GLASSES DAY OF SURGERY Neurological History: Reports: Hx Migraine - UNDER CONTROL, Other Neuro Impairments/Disorders - NYSTAGUMUS Psychiatric History: Reports: Hx Anxiety - ON MED, Hx Depression Denies: Hx Panic Disorder - Surgical History Surgery Procedure, Year, and Place: TMJ SURGERY x2 2001, 2002. 2006. sinus surgery. D & C. 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 GENERAL: Patient is a well-developed and nourished female who is lying comfortable in the stretcher. Patient is not in any acute respiratory distress. HEAD AND FACE: No signs of trauma. No ecchymosis, hematomas or skull depressions. No sinus tenderness. EYES: PERRLA, EOMI x 2, No injected conjunctiva, no nystagmus. EARS: Hearing grossly intact. Ear canals and tympanic membranes are within normal limits. MOUTH: Oropharynx within normal limits. NECK: Supple, trachea is midline, no adenopathy, no JVD, no carotid bruit, no c- spine tenderness, neck with full ROM. CHEST: Symmetric, no tenderness at palpation LUNGS: Clear to auscultation bilaterally. No wheezing or crackles. CVS: Regular rate and rhythm, S1 and S2 present, no murmurs or gallops appreciated. ABDOMEN: Soft, non-tender. No signs of distention. No rebound no guarding, and no masses palpated. Bowel sounds are normal. EXTREMITIES: FROM in all major joints, no edema, no cyanosis or clubbing. NEURO: Alert and oriented x 3. No acute neurological deficits. Speech is normal and follows commands. SKIN: Dry and warm. LLE: ecchymosis over the left upper thigh, which looks intermediate age. Triage Information Reviewed: Yes Vital Signs On Initial Exam: Initial Vitals Temp Pulse Resp BP Pulse Ox 98.9 F 87 16 104/65 99 03/14/18 20:53 03/14/18 20:53 03/14/18 20:53 03/14/18 20:53 03/14/18 20:53 Vital Signs Reviewed: Yes - Mayo Coma Scale Best Eye Response: 4 - Spontaneous Best Motor Response: 6 - Obeys Commands Best Verbal Response: 5 - Oriented Coma Scale Total: 15 Diagnostics - Vital Signs Vital Signs Temp Pulse Resp BP Pulse Ox 03/14/18 20:53 98.9 F 87 16 104/65 99 - Laboratory Result Diagrams: 03/14/18 21:40 03/14/18 21:40 Lab Statement: Any lab studies that have been ordered have been reviewed, and results considered in the medical decision making process. - CT Brain CT CT Interpretation: No Acute Changes - IMPRESSION: No acute intracranial pathology. Dr. Colorado has reviewed this report. CT Interpretation Completed By: Radiologist Re-Evaluation - Re-Evaluation First Eval Re-Evaluation Time: 23:33 Change: Improved Comment: I reviewed the brain CT with pt and family. Pt reports feeling better. Headache Course/Dx - Course Assessment/Plan: Pt is a 37 y/o female, with hx of migraines and pituitary tumor , presenting to the ED c/o right sided headache today since around 16:00. Mother reports that at 19:30 today pt ambulated into the living room and sat down on the couch. Mother states the pt couldn't speak and had her face and hands "scrunched up." Per mother, pt has been having migraines more often and has had a migraine every day in the last 3 weeks. 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 Test results without any significant abnormalities. Brain CT shows no acute intracranial pathology. In the ED course the pt was given IV fluids, Benadryl, Toradol and Reglan. Pt reports feeling better after these medications. Pt will be discharged home with follow up from neurosurgery. She is instructed to return to the ED for any worsening or new symptoms. - Diagnoses Provider Diagnoses: Migraine headache Discharge - Sign-Out/Discharge Documenting (check all that apply): Patient Departure - Discharge home - Discharge Plan Condition: Stable Disposition: HOME Patient Education Materials: Migraine Headache (ED) Referrals: Luis Fowler DO [Primary Care Provider] - Josep Holguin MD [Medical Doctor] - Additional Instructions: Please follow up with Dr. Holguin, neurosurgeon. RETURN TO EMERGENCY DEPARTMENT FOR ANY NEW OR WORSENING SYMPTOMS. - Attestation Statements Document Initiated by Scribe: Yes Documenting Scribe: Tania Roth Provider For Whom Scribe is Documenting (Include Credential): Homa Colorado MD Scribe Attestation: Tania Maldonado, scribed for Homa Colorado MD on 03/15/18 at 0130.
[2018-03-14] MEDS ORDERED: Metoclopramide IV* 5 MG/ML 2 ML VIAL IV SLOW PU ONE (21:31)
[2018-03-14] MEDS ORDERED: NS 0.9% 1000 ML* 1,000 ML IV ONE (21:31)
[2018-03-14] MEDS ORDERED: diPHENhydraMINE PO* 25 MG PO ONE (21:32)
[2018-03-14] MEDS ORDERED: Ketorolac INJ* 30 MG/ML 1 ML VIAL IV PUSH ONE (21:32)
[2018-03-14 21:48] LABS: ABS Basophils 0 10^3/ul (0-0.2); ABS Eosinophils 0.1 10^3/ul (0-0.6); ABS Lymphocytes 2.8 10^3/ul (1.0-4.8); ABS Monocytes 0.4 10^3/ul (0-0.8); ABS Neutrophils 3.4 10^3/ul (1.5-7.7); ABS Nucleated RBC 0 10^3/ul; Eosinophil % 1.3 % (0-6); Hematocrit 40 % (35-47); Hemoglobin 13.6 g/dl (12.0-16.0); Lymphocyte % 41.3 % (25-47); Mean Corpuscular HGB Conc 34 g/dl (31-36); Mean Corpuscular Hemoglobin 30 pg (27-31); Mean Corpuscular Volume 89 fL (80-97); Mean Platelet Volume 7.7 um3 (7.4-10.4); Nucleated Red Blood Cells % 0.1; Platelet Count 276 10^3/ul (150-450); Red Blood Count 4.49 10^6/ul (4.00-5.40); Red Cell Distribution Width 13 % (10.5-15); White Blood Count 6.7 10^3/ul (3.5-10.8)
[2018-03-14 21:56] LABS: INR 0.97 (0.77-1.02)
[2018-03-14 22:06] LABS: EGFR Non-African American 69.6 (>60)
--- NOTE | 2018-03-14 23:31 | RAD ---
EXAM: CT Head Without Intravenous Contrast CLINICAL HISTORY: 37 years old, female; Pain; Headache; Migraine; Aura effect not specified; Other: Unknown; Patient HX: HX of migraines; Additional info: H/a TECHNIQUE: Axial computed tomography images of the head/brain without intravenous contrast. All CT scans at this facility use at least one of these dose optimization techniques: automated exposure control; mA and/or kV adjustment per patient size (includes targeted exams where dose is matched to clinical indication); or iterative reconstruction. COMPARISON: BRAIN W/O CT BRAIN W/O 02/03/2012 4:41 PM FINDINGS: Brain: No intracranial hemorrhage or extra-axial fluid collection. No evidence of mass effect or midline shift. Ritchie-white matter differentiation is normal. Ventricles: Ventricles and sulci are normal. Bones/joints: No acute osseus lesions or fractures. Soft tissues: Unremarkable. Sinuses: Visualized paranasal sinuses are unremarkable. Mastoid air cells: Mastoid air cells are clear. IMPRESSION: No acute intracranial pathology. To contact [facility] with a general question: [facility] - [phone] For direct physician to physician contact: Physician Hotline - [phone] [facility] (ad Facility ID #[id number])
[2018-03-14 23:49] VITALS: BP 114/74
== END 2018-03-14 23:48 | disposition home or self-care (01) ==
LOC: ED 20:28
DX: G43.909 Migraine, unspecified, not intractable, without status migrainosus (principal)
CPT/HCPCS: 36415; 70450; 80053; 84702; 85025; 85610; 85730; 96374; 96375; 99283; A9270-GY; J1885; J2765

== ENCOUNTER 2019-06-29 11:36 | Emergency (ER) | payer OTHER ==
--- NOTE | 2019-06-29 11:45 | ED ---
Abdominal Pain/Female - HPI Summary HPI Summary: Pt. is a 38 y.o female who presents to the ER with diffuse abd. pain, N/V, and loose stools since yesterday. Pt. notes she is currently taking clindamycin for mastitis. Notes infection is improving. Denies sick contacts of recent travels. Sxs are moderate in severity. No current modifying factors. - History of Current Complaint Chief Complaint: EDAbdPain Stated Complaint: VOMITING/TARRY STOOL/SEVERE ABD PAIN PER PT Time Seen by Provider: 06/29/19 11:45 Hx Obtained From: Patient Hx Last Menstrual Period: MIRENA IUD Pain Intensity: 7 Allergies/Adverse Reactions: Allergies Allergy/AdvReac Type Severity Reaction Status Date / Time cephalexin [From Keflex] Allergy Difficulty Verified 06/29/19 11:44 Breathing doxycycline Allergy Difficulty Verified 06/29/19 11:44 Breathing/Wheezing erythromycin base Allergy Difficulty Verified 06/29/19 11:44 [From Erythrocin] Breathing ibuprofen Allergy Hives Verified 06/29/19 11:44 levofloxacin [From Levaquin] Allergy Vomiting Verified 06/29/19 11:44 naproxen [From Naprosyn] Allergy Difficulty Verified 06/29/19 11:44 Breathing Penicillins Allergy Unknown Verified 06/29/19 11:44 Reaction Details sulfamethoxazole Allergy Difficulty Verified 06/29/19 11:44 [From Bactrim] Breathing tetanus and diphtheria Allergy Difficulty Verified 06/29/19 11:44 toxoids Breathing trimethoprim [From Bactrim] Allergy Difficulty Verified 06/29/19 11:44 Breathing some muscle relaxants Allergy Severe Nausea And Uncoded 06/29/19 11:44 Vomiting PMH/Surg Hx/FS Hx/Imm Hx Previously Healthy: Yes Endocrine/Hematology History: Denies: Hx Diabetes, Hx Thyroid Disease Cardiovascular History: Denies: Hx Hypertension, Hx Pacemaker/ICD Respiratory History: Reports: Hx Asthma, Hx Sleep Apnea, Other Respiratory Problems/Disorders - SINUS POLYPS Denies: Hx Chronic Obstructive Pulmonary Disease (COPD) GI History: Reports: Other GI Disorders - STATES TENDS TO GET NAUSEATED WITH PAIN & ANESTHESIA Denies: Hx Ulcer History: Reports: Hx Kidney Infection - FREQUENT HX OF LAST ONE 2 WEEKS AGO, Other Problems/Disorders - STATES EVERY TIME SHE IS CATHERIZED SHE GETS INFECTION Denies: Hx Renal Disease Musculoskeletal History: Reports: Hx Arthritis - BILATERAL JAW - TMJ, Hx Tendonitis - Hx OF, YEARS AGO, ARMS Sensory History: Reports: Hx Contacts or Glasses - WILL WEAR GLASSES DAY OF SURGERY Denies: Hx Hearing Aid Opthamlomology History: Reports: Hx Contacts or Glasses - WILL WEAR GLASSES DAY OF SURGERY Neurological History: Reports: Hx Migraine - UNDER CONTROL, Other Neuro Impairments/Disorders - NYSTAGUMUS Psychiatric History: Reports: Hx Anxiety - ON MED, Hx Depression Denies: Hx Panic Disorder - Surgical History Surgery Procedure, Year, and Place: TMJ SURGERY x2 2001, 2002. 2006. sinus surgery. D & C. CAUTERIZED TEAR DUCTS Hx Anesthesia Reactions: No - Immunization History Date of Tetanus Vaccine: allergic to vaccine Date of Influenza Vaccine: fall 2015 Infectious Disease History: No Infectious Disease History: Denies: Hx Clostridium Difficile, Hx Hepatitis, Hx Human Immunodeficiency Virus (HIV), Hx of Known/Suspected MRSA, Hx Shingles, Hx Tuberculosis, Hx Known/ Suspected VRE, Hx Known/Suspected VRSA, History Other Infectious Disease, Traveled Outside the in Last 30 Days - Family History Known Family History: Positive: Diabetes - maternal grandmother, Non- Contributory Negative: Cardiac Disease, Hypertension - Social History Occupation: Employed Full-time Lives: With Family Alcohol Use: Rare Alcohol Amount: MAYBE 1 DRINK/YEAR Substance Use Type: Reports: None Smoking Status (MU): Never Smoked Tobacco Have You Smoked in the Last Year: No Review of Systems Constitutional: Negative ENT: Negative Cardiovascular: Negative Respiratory: Negative Positive: Abdominal Pain, Vomiting, Diarrhea, Nausea Genitourinary: Negative Neurological: Negative All Other Systems Reviewed And Are Negative: Yes Physical Exam Triage Information Reviewed: Yes Vital Signs On Initial Exam: Initial Vitals Temp Pulse Resp BP Pulse Ox 99.2 F 80 16 128/74 100 06/29/19 11:37 06/29/19 11:37 06/29/19 11:37 06/29/19 11:37 06/29/19 11:37 Vital Signs Reviewed: Yes Appearance: Positive: Pain Distress - Pt. lying in bed, appears in pain but nontoxic. Tearful. Skin: Positive: Warm, Dry Head/Face: Positive: Normal Head/Face Inspection Eyes: Positive: Normal, EOMI Dental: Positive: Other Neck: Positive: Supple Respiratory/Lung Sounds: Positive: Clear to Auscultation, Breath Sounds Present Cardiovascular: Positive: Normal, RRR Abdomen Description: Positive: Other: - Abd. is soft with diffuse tenderness on palpation. Bilateral CVA tenderness. Neurological: Positive: Normal, CN Intact II-III Psychiatric: Positive: Affect/Mood Appropriate Procedures - Sedation Patient Received Moderate/Deep Sedation with Procedure: No Diagnostics - Vital Signs Vital Signs Temp Pulse Resp BP Pulse Ox 06/29/19 11:37 99.2 F 80 16 128/74 100 - Laboratory Result Diagrams: 06/29/19 12:08 06/29/19 12:08 Lab Statement: Any lab studies that have been ordered have been reviewed, and results considered in the medical decision making process. Abdominal Pain Fem Course/Dx - Course Course Of Treatment: Pt. with diffuse abd. pain, vomiting, and loose stools. Afebrile with stable VS> Pt. given pain medications and zofran. Labs and ct scan ordered for further evaluation. Labs are unremarkable. CT scan negative for acute findings. Pt. has had no bowel movement in ED and notes stool is still formed. On re-exam sxs have improved. Results discussed. Tolerating PO fluids. Suspect viral etiology. WIll dc home to closely f.u with pcp. WIll return to er if sxs change or worsen. Pt. understands and agrees with plan. - Diagnoses Differential Diagnosis: Positive: Appendicitis, Diverticulitis, Irritable Bowel Syndrome, Urinary Tract Infection Provider Diagnoses: Gastroenteritis, Abdominal pain Discharge ED - Sign-Out/Discharge Documenting (check all that apply): Patient Departure - Discharge Plan Condition: Improved Disposition: HOME Prescriptions: Dicyclomine CAP* [Bentyl CAP*] 10 mg PO TID PRN #12 cap PRN Reason: Pain - Mild Ondansetron TAB* [Zofran 4 MG Tab*] 4 mg PO Q6H PRN #12 tab PRN Reason: Nausea Patient Education Materials: Gastroenteritis (ED) Forms: *Work Release Referrals: Luis Folwer DO [Primary Care Provider] - Additional Instructions: Follow up with PCP in 2-3 days Medication as directed Increase fluids Return to ER if symptoms change or worsen - Billing Disposition and Condition Condition: IMPROVED Disposition: Home - Attestation Statements Provider Attestation: I was available for consultation for this patient. I did not evaluate the patient, or participate in any medical decision making or disposition decisions unless I am specifically named in the chart as having consulted on the patient. If I have consulted on the patient, please see my own ED note on the patient encounter. Nya Dang MD
--- OUTSIDE RECORDS SUMMARY | 2019-06-29 11:49 | XMS REPORT | Continuity of Care Document ---
:1980 External Reference #:[id number] Author Name Puneet Perry M.D Address [address] [place] [address] Care Team Providers Name Role Phone Luis Fowler D.O. Care Team Information Project Analyst [phone] Problems Active Problems Provider Date Obstructive sleep apnea syndrome Davis Flannery M.D. Onset: 09/20/2011 Disturbance in sleep behavior Davis Flannery M.D. Onset: 09/20/2011 Deviated nasal septum Davis Flannery M.D. Onset: 09/20/2011 Social History Type Date Description Comments Sex Unknown Tobacco Use Start: Unknown Never Smoked Cigarettes ETOH Use Never used alcohol Recreational Drug Use Never Used Drugs Allergies, Adverse Reactions, Alerts Active Allergies Reaction Severity Comments Date Ibuprofen 07/28/2011 Bactrim 07/28/2011 Erythromycin 07/28/2011 Naprosyn 07/28/2011 Doxycycline 07/28/2011 Penicillin 07/28/2011 Muscle Relaxant 11/07/2011 Medications Active Medications SIG Qnty Indications Ordering Date Provider Prednisone 1 by mouth every 5tabs Davis Flannery, 02/14/2019 10mg Tablets morning M.D. Fluoxetine HCL 1 by mouth every Puneet Perry, 01/09/2019 20mg day plus one 10mg M.D Capsules capsule Oxycodone HCL 1 PO every 8 14tabs Davis Flannery, 12/22/2015 5mg Tablets hours as needed M.D. Fluticasone Propionate 2 sprays both 1units Davis Flannery, 07/06/2015 nostrils every M.D. 50mcg/Act Suspension day Multivitamins Unknown Capsules Probiotic Unknown Capsules Melatonin Unknown Capsules Benadryl Unknown 25mg Tablets CBD Oil Unknown Levitram Unknown Levothyroxine Sodium 1 by mouth every Unknown day 50mcg Tablets Immunizations Description No Information Available Vital Signs Date Vital Result Comment 06/16/2019 9:55am Weight 148.00 lb Height 63.25 inches 5'3.25" BMI (Body Mass Index) 26.0 kg/m2 BP Systolic 113 mmHg BP Diastolic 61 mmHg Heart Rate 84 /min O2 % BldC Oximetry 97 % Body Temperature 97.1 F [place] Score 16 Pain Level 0 01/09/2019 1:26pm Weight 164.00 lb Height 63.25 inches 5'3.25" BMI (Body Mass Index) 28.8 kg/m2 BP Systolic 137 mmHg BP Diastolic 79 mmHg Heart Rate 122 /min O2 % BldC Oximetry 95 % Body Temperature 99.0 F [place] Score 14 Pain Level 0 Results Description No Information Available Procedures Date Code Description Status 06/16/2019 92877 Nasal Endoscopy, Diag. Completed Medical Devices Description No Information Available Encounters Type Date Location Provider Dx Diagnosis Office Visit 06/16/2019 Main Office Davis Flannery M.D. J32.9 Chronic sinusitis, 10:15a unspecified G47.33 Obstructive sleep apnea (adult) (pediatric) J35.01 Chronic tonsillitis Office Visit 01/09/2019 1:45p Main Office Puneet Perry M.D G47.39 Other sleep apnea Assessments Date Code Description Provider 06/16/2019 J32.9 Chronic sinusitis, unspecified Davis Flannery M.D. 06/16/2019 G47.33 Obstructive sleep apnea (adult) (pediatric) Davis Flannery M.D. 06/16/2019 J35.01 Chronic tonsillitis Davis Flannery M.D. 01/09/2019 G47.39 Other sleep apnea Puneet Perry M.D Plan of Treatment No Information Available Functional Status Description No Information Available Mental Status Description No Information Available Referrals Description No Information Available
--- OUTSIDE RECORDS SUMMARY | 2019-06-29 11:49 | XMS REPORT | Continuity of Care Document ---
:1980 External Reference #:[id number] Author Name Davis Flannery M.D. (transmitted by agent of provider Estella Leigh) Address [address] [place] [id number] Care Team Providers Name Role Phone Luis Fowler D.O. Care Team Information Correspondence Transcriber [phone] Problems Active Problems Provider Date Obstructive sleep [...] M.D. Fluoxetine HCL 1 by mouth every Trikha,Puneet, 01/09/2019 20mg day plus one 10mg M.D [...] Oximetry 97 % Body Temperature 97.1 F [place] Score 16 Pain Level 0 01/09/2019 1:26pm Weight 164.00 lb Height 63.25 inches 5'3.25" BMI (Body Mass Index) 28.8 kg/m2 BP Systolic 137 mmHg BP Diastolic 79 mmHg Heart Rate 122 /min O2 % BldC Oximetry 95 % Body Temperature 99.0 F [place] Score 14 Pain Level 0 Results Description No Information Available Procedures Date Code Description Status 06/16/2019 22779 Nasal Endoscopy, Diag. Completed Medical Devices Description [...]
--- OUTSIDE RECORDS SUMMARY | 2019-06-29 11:49 | XMS REPORT | Continuity of Care Document ---
:1980 External Reference #:[id number] Author Name Kristopher Casas NP (transmitted by agent of provider [facility]) Address [address] [facility] [address] [facility] [address] [place] [address] Care Team Providers Name Role Phone Luis Fowler DO - Family Care Team Information Manager Vehicle Medicine Problems Active Problems Provider Date Sprain of medial collateral ligament of knee Danita Blanton M.D. Onset: 2015 Social History Type Date Description Comments Sex Unknown ETOH Use Denies alcohol use Tobacco Use Start: Unknown Patient has never smoked Smoking Status Reviewed: 05/26/19 Patient has never smoked Exercise Type/Frequency Exercises regularly Allergies, Adverse Reactions, Alerts Active Allergies Reaction Severity Comments Date Ibuprofen 03/10/2016 Keflex 03/10/2016 Penicillin 03/10/2016 Doxycycline 03/10/2016 Tetanus Toxoids 03/10/2016 Naprosyn 03/10/2016 Bactrim 03/10/2016 Erythromycin 03/10/2016 Kiwi Juice Hives Moderate 05/26/2019 Banana Extract vomits Moderate 05/26/2019 Medications Active Medications SIG Qnty Indications Ordering Date Provider Metoclopramide HCL take one tablet 90tabs Edgar S. 05/26/2019 10mg by mouth every Andrea Thompson Tablets Dispers 8 hours, as needed for nausea and vomiting. Dihydroergotamine Inject one time 3ml G43.009 Edgar S. 05/26/2019 Mesylate subcutaneously, Andrea Thompson 1mg/ml Solution as needed for severe migraines. Riboflavin take four caps 120caps G43.009 Edgar S. 05/26/2019 100mg Capsules by mouth daily Andrea Thompson Aimovig inject sq once 1ml G43.009 Edgar S. 05/26/2019 70mg/ml Solution a month Andrea Thompson Auto-Inject Selenium once daily Unknown Evening Elizabeth Oil every hs Unknown Vitamin B-6 4 tabs by mouth Unknown 25mg Tablets in the am Biotin once daily Unknown Zinc W/O Copper one by mouth Unknown twice daily Multivitamin Gummies 2 by mouth Unknown Womens every day Chewtabs Calcium Plus Vitamin D 1 by mouth Unknown twice daily Excedrin Extra Strength as needed Unknown [phone] Tablets Baclofen as needed for Unknown 10mg Tablets jaw pain Fluoxetine HCL 3 caps by mouth Unknown 10mg Capsules every day Vitamin D once a day Unknown Iron 1/2 tab twice a Unknown day CARD LACER Thyroid TK 1 T PO qam Unknown 60mg Tablets Vitamin C 1 by mouth Unknown 500mg Chewtabs twice a day Zolpidem Tartrate 1 tab daily at Unknown 5mg Tablets bedtime as needed Cabergoline take 1 tab by Unknown 0.5mg Tablets mouth twice weekly Epipen 2-Jag use as directed Unknown 0.3mg/0.3ML Solution Auto-Inject CBD Oil twice daily Unknown Restasis 1 gtt OU every Unknown 0.05% Emulsion 12 hours Magnesium 2-4 tabs by Unknown 400mg Tablets mouth every evening Oxycodone HCL 1 tabs by mouth Unknown 5mg Tablets every 4 hours as needed Cetirizine HCL 1 by mouth Unknown 10mg Tablets every day Melatonin 2 tabs by mouth Unknown 5mg Tablets Sub every at bedtime as needed Probiotic one tab daily Unknown Tablets Fluticasone Propionate 2 sprays each Davis Flannery, nostril daily 50mcg/Act Suspension Methylphenidate HCL Take 1 To 1/2 Unknown 20mg Tablets By Tablets Mouth Twice A Day as Needed Immunizations Description No Information Available Vital Signs Date Vital Result Comment 05/26/2019 10:02am Height 65 inches 5'5" Weight 150.00 lb Heart Rate 100 /min BP Systolic 130 mmHg BP Diastolic 68 mmHg BMI (Body Mass Index) 25.0 kg/m2 03/10/2016 2:31pm Height 65 inches 5'5" Heart Rate 64 /min BP Systolic Sitting 98 mmHg BP Diastolic Sitting 60 mmHg Respiratory Rate 16 /min Pain Level 6 Results Description No Information Available Procedures Description No Information Available Medical Devices Description No Information Available Encounters Description No Information Available Assessments Date Code Description Provider 05/26/2019 G43.009 Migraine without aura, not intractable, without Kristopher Casas NP status migrainosus 05/26/2019 M54.2 Cervicalgia Kristopher Casas NP 05/26/2019 Z79.899 Other fdc (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 therapy Kristopher Casas NP Plan of Treatment Future Appointment(s):07/01/2019 4:00 pm - Kristopher Casas NP at [facility]05/26/2019 - Kristopher Casas NPG43.009 Migraine without aura, not intractable, without status migrainosusNew Medication: Dihydroergotamine Mesylate 1 mg/ml - Inject one time subcutaneously, as needed for severe migraines.Riboflavin 100 mg - take four caps by mouth dailyAimovig 70 mg/ml - inject sq once a monthFollow up:Please schedule for B[facility] at [facility] in 1[facility]2 weeks. ONE MONTH at SpfddslB95.2 [id number] Other fdc ( 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 therapyRecommendations:Discontinue Keppra 500 mg twice a day. Functional Status Description No Information Available Mental Status Description No Information Available Referrals Description No Information Available
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
--- OUTSIDE RECORDS SUMMARY | 2019-06-29 11:49 | XMS REPORT | Continuity of Care Document ---
:1980 External Reference #:[id number] Author Name Puneet Perry M.D (transmitted by agent of provider Sonam Pineda) Address [address] [place] [address] Care Team Providers Name Role Phone Luis Fowler D.O. Care Team Information Afterschool Babysitter [phone] Problems Active Problems Provider Date Obstructive sleep [...] Oximetry 97 % Body Temperature 97.1 F [place] Score 16 Pain Level 0 01/09/2019 1:26pm Weight 164.00 lb Height 63.25 inches 5'3.25" BMI (Body Mass Index) 28.8 kg/m2 BP Systolic 137 mmHg BP Diastolic 79 mmHg Heart Rate 122 /min O2 % BldC Oximetry 95 % Body Temperature 99.0 F [place] Score 14 Pain Level 0 Results Description No Information Available Procedures Description No Information Available Medical Devices Description No Information Available Encounters Type Date Location Provider Dx Diagnosis Office Visit 01/09/2019 Main Office Puneet Perry M.D G47.39 Other sleep apnea 1:45p Assessments Date Code Description Provider 01/09/2019 G47.39 Other sleep apnea Puneet Perry M.D Plan of Treatment No Information Available Functional Status Description No Information Available Mental Status Description No Information Available Referrals Description No Information Available
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
--- OUTSIDE RECORDS SUMMARY | 2019-06-29 11:50 | XMS REPORT | Continuity of Care Document ---
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 Thyroid TK 1 T PO qam Unknown 60mg Tablets Iron 1/2 tab twice a Unknown day Vitamin D once a day Unknown Fluoxetine HCL 3 caps by mouth Unknown 10mg Capsules every day Baclofen as needed for Unknown 10mg Tablets jaw pain Excedrin Extra Strength as needed Unknown [phone] Tablets Calcium Plus Vitamin D 1 by mouth twice Unknown daily Multivitamin Gummies 2 by mouth every Unknown Womens day Chewtabs Trimethobenzamide take 1 cap by Unknown Hydrochloride mouth 3 times a 300mg Capsules day as needed for nausea and vomiting Zinc W/O Copper one by mouth Unknown twice daily Biotin once daily Unknown Vitamin B-6 4 tabs by mouth Unknown 25mg Tablets in the am Evening [place] Oil every hs Unknown Selenium once daily Unknown Vitamin C 1 by mouth twice Unknown 500mg Chewtabs a day Levetiracetam 1 by mouth twice Unknown 500mg Tablets a day Zolpidem Tartrate 1 tab daily [...] as needed Cetirizine HCL 1 by mouth every Unknown 10mg Tablets day Melatonin 2 tabs by mouth Unknown 5mg Tablets Sub every at bedtime as needed Probiotic one tab daily Unknown Tablets Fluticasone Propionate 2 sprays each Davis Flannery MD nostril daily 50mcg/Act Suspension Methylphenidate HCL Take 1 To 1/2 Unknown 20mg Tablets By Mouth Tablets Twice A Day as Needed Immunizations Description [...] Cervicalgia Kristopher Casas NP 05/26/2019 Z79.899 Other long term care administrator (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 therapy Kristopher Casas NP Plan of Treatment No Information Available Functional Status Description No Information Available Mental Status Description No Information Available Referrals Description No Information Available
[2019-06-29] MEDS ORDERED: Ondansetron INJ* 2 MG/ML VIAL IV ONE ×2 (11:58→14:41)
[2019-06-29] MEDS ORDERED: Morphine 4 MG/ML VIAL (1 ml) 4 MG/ML VIAL IV ONE (11:58)
[2019-06-29] MEDS ORDERED: NS 0.9% 1000 ML** 1,000 ML IV ONE (11:58)
[2019-06-29 12:21] LABS: ABS Lymphocytes 1.7 10^3/ul (1.0-4.8); ABS Monocytes 0.4 10^3/ul (0-0.8); ABS Neutrophils 2.9 10^3/ul (1.5-7.7); Eosinophil % 0.7 %; Hematocrit 41 % (35-47); Hemoglobin 14.1 g/dL (12.0-16.0); Mean Corpuscular HGB Conc 35 g/dL (31-36); Mean Corpuscular Hemoglobin 30 pg (27-31); Mean Corpuscular Volume 87 fL (80-97); Mean Platelet Volume 7.6 fL (7.4-10.4); Platelet Count 285 10^3/uL (150-450); Red Blood Count 4.64 10^6 /uL (3.70-4.87); Red Cell Distribution Width 15 % (10-15); White Blood Count 5.1 10^3/uL (3.5-10.8)
[2019-06-29 12:32] LABS: ALT 19 U/L (7-52); AST 19 U/L (13-39); Albumin 4.1 g/dL (3.2-5.2); Albumin/Globulin Ratio 1.6 (1-3); Alkaline Phosphatase 54 U/L (34-104); Anion Gap 5 mmol/L (2-11); BUN/Creatinine Ratio 17.1 (8-20); Blood Urea Nitrogen 14 mg/dL (6-24); C Reactive Protein 2.81 mg/L (<8.01); CO2 Carbon Dioxide 27 mmol/L (22-32); Calcium 9.1 mg/dL (8.6-10.3); Chloride 104 mmol/L (101-111); EGFR African American 94.4 (>60); Globulin 2.5 g/dL (2-4); Glucose 97 mg/dL (70-100); Potassium 3.8 mmol/L (3.5-5.0); Sodium 136 mmol/L (135-145); Total Protein 6.6 g/dL (6.4-8.9)
[2019-06-29 12:38] LABS: HCG Pregnancy < 0.60 mIU/mL
[2019-06-29] MEDS ORDERED: Iohexol 300* (CONTRAST) 10 ML SDV IV ONE (12:49)
[2019-06-29 13:59] LABS: Urine Appearance Cloudy; Urine Bacteria Absent (Absent); Urine Bilirubin Negative (Negative); Urine Blood Negative (Negative); Urine Color Yellow; Urine Glucose Negative (Negative); Urine Ketones Negative (Negative); Urine Nitrite Negative (Negative); Urine Protein Negative (Negative); Urine Red Blood Cell 2+(6-10/hpf) (Absent); Urine Specific Gravity 1.018 (1.010-1.030); Urine Squamous Epithelial Cell Present (Absent); Urine Urobilinogen Negative (Negative); Urine White Blood Cell Absent (Absent)
[2019-06-29] MEDS ORDERED: Dicyclomine CAP* 10 MG PO ONE (14:41)
[2019-06-29 15:05] VITALS: BP 107/68
== END 2019-06-29 15:46 | disposition home or self-care (01) ==
LOC: ED 11:36
DX: K52.9 Noninfective gastroenteritis and colitis, unspecified (principal); R10.84 Generalized abdominal pain; N61.0 Mastitis without abscess; F41.9 Anxiety disorder, unspecified; Z88.6 Allergy status to analgesic agent; Z88.1 Allergy status to other antibiotic agents; Z88.0 Allergy status to penicillin; Z88.2 Allergy status to sulfonamides; Z88.8 Allergy status to other drugs, medicaments and biological substances
CPT/HCPCS: 36415; 74177; 80053; 81003; 83605; 83690; 84702; 85025; 86140; 96361; 96374; 96375; 96376; 99283; A9270-GY; J2270; J2405; Q9967

== ENCOUNTER 2019-07-28 20:15 | Emergency (ER) | payer OTHER ==
--- OUTSIDE RECORDS SUMMARY | 2019-07-28 20:27 | XMS REPORT | Continuity of Care Document ---
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 Onset: 2015 Social History Type Date Description Comments Sex Unknown ETOH Use Denies alcohol use Tobacco Use Start: Unknown Patient has never smoked Smoking Status Reviewed: 07/02/19 Patient has never smoked Exercise Type/Frequency Exercises regularly Allergies, Adverse Reactions, Alerts Active Allergies Reaction Severity Comments Date Ibuprofen 03/10/2016 Keflex 03/10/2016 Penicillin 03/10/2016 Doxycycline 03/10/2016 Tetanus Toxoids 03/10/2016 Naprosyn 03/10/2016 Bactrim 03/10/2016 Erythromycin 03/10/2016 Kiwi Juice Hives Moderate 05/26/2019 Banana Extract vomits Moderate 05/26/2019 Medications Active Medications SIG Qnty Indications Ordering Date Provider Emgality inject 2 pens 2Syringe Edgar SGarrick 06/10/2019 120mg/ml Solution for the first Andrea Thompson Auto-Inject dose than 1 pen monthly (first dose will be 2 ml) Metoclopramide HCL take one tablet 90tabs Edgar SGarrick 05/26/2019 10mg by mouth every Andrea Thompson Tablets Dispers 8 hours, as needed for nausea and vomiting. Dihydroergotamine Inject one time 3ml G43.009 Edgar SGarrick 05/26/2019 Mesylate subcutaneously, Andrea Thompson 1mg/ml Solution as needed for severe migraines. Riboflavin take four caps 120caps G43.009 Edgar AstudilloGarrick 05/26/2019 100mg Capsules by mouth daily Andrea Thompson Evening [place] Oil every hs Unknown Vitamin B-6 4 tabs by mouth Unknown 25mg Tablets in the am Biotin once daily Unknown Zinc W/O Copper one by mouth Unknown twice daily Multivitamin Gummies 2 by mouth Unknown Womens every day Chewtabs Calcium Plus Vitamin D 1 by mouth Unknown twice daily Excedrin Extra Strength as needed Unknown [id number] Tablets Baclofen as needed for Unknown 10mg Tablets jaw pain Fluoxetine HCL 3 caps by mouth Unknown 10mg Capsules every day Vitamin D once a day Unknown Iron 1/2 tab twice a Unknown day GEAR TESTER Thyroid TK 1 T PO qam Unknown 60mg Tablets Clindamycin HCL TK 1 C PO Q 8 H Unknown 300mg For 10 Days Capsules Selenium once daily Unknown Vitamin C 1 by mouth Unknown 500mg [...] 2 sprays each Davis Flannery, nostril daily MD 50mcg/Act Suspension Methylphenidate HCL Take 1 To 1/2 Unknown 20mg Tablets By Tablets Mouth Twice A Day as Needed History Medications Aimovig inject sq once a 1ml G43.009 Edgar Thompson, 05/26/2019 - 70mg/ml month M.D. 06/10/2019 Solution Auto-Inject Immunizations Description No Information Available Vital Signs Date Vital Result Comment 07/02/2019 3:10pm Height 65 inches 5'5" Weight 148.00 lb Heart Rate 88 /min BP Systolic 122 mmHg BP Diastolic 70 mmHg BMI (Body Mass Index) 24.6 kg/m2 05/26/2019 10:02am Height 65 inches 5'5" Weight 150.00 lb Heart Rate 100 /min BP Systolic 130 mmHg BP Diastolic 68 mmHg BMI (Body Mass Index) 25.0 kg/m2 Results Description No Information Available Procedures Description No Information Available Medical Devices Description No Information Available Encounters Type Date Location Provider Dx Diagnosis Office Visit 05/26/2019 [facility] Kristopher Casas, G43.009 Migraine w/o 10:00a Clinic GEAR TESTER aura, not intractable, w/o status migrainosus M54.2 Cervicalgia Z79.899 Other residential (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 therapy Assessments Date Code Description Provider 07/02/2019 G43.009 Migraine without aura, not intractable, without Kristopher Casas NP status migrainosus 07/02/2019 M54.2 Cervicalgia Kristopher Casas NP 07/02/2019 Z79.899 Other learning technologies specialist (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 therapy Kristopher Casas NP 05/26/2019 G43.009 Migraine without aura, not intractable, without Kristopher Casas NP status migrainosus 05/26/2019 M54.2 Cervicalgia Kristopher Casas NP 05/26/2019 Z79.899 Other learning technologies specialist (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 therapy Kristopher Casas NP Plan of Treatment Future Appointment(s):07/18/2019 9:30 am - Kristopher Casas NP at [facility]/02/2019 - Kristopher Casas NPG43.009 Migraine without aura, not intractable , without status migrainosusFollow up:2 Weeks on Sunday07/18/19 at the [facility]54.2 [id number] Other residential (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 therapy Functional Status Description No Information Available Mental Status Description No Information Available Referrals Description No Information Available
--- OUTSIDE RECORDS SUMMARY | 2019-07-28 20:27 | XMS REPORT | Continuity of Care Document ---
:1980 External Reference #:[id number] Author Name Davis Flannery M.D. (transmitted by agent of provider Taniya Morris) Address [address] [place] [id number] Care Team Providers Name Role Phone Luis Fowler D.O. Care Team Information [employer] [phone] Problems Active Problems Provider Date Obstructive sleep [...] Medications SIG Qnty Indications Ordering Date Provider Fluoxetine HCL 1 by mouth every TrihermesaPuneet, 01/09/2019 20mg day plus one 10mg M.D [...] by mouth every Unknown day 50mcg Tablets History Medications Prednisone 1 by mouth every 5tabs Davis Flannery, 02/14/2019 - 10mg Tablets morning M.D. 07/16/2019 Immunizations Description No Information Available Vital Signs Date Vital Result Comment 07/16/2019 8:09am Weight 155.00 lb Height 63.25 inches 5'3.25" BMI (Body Mass Index) 27.2 kg/m2 BP Systolic 118 mmHg BP Diastolic 61 mmHg Heart Rate 91 /min O2 % BldC Oximetry 100 % Body Temperature 97.8 F Pain Level 6 06/16/2019 9:55am Weight 148.00 lb Height 63.25 inches 5'3.25" BMI (Body Mass Index) 26.0 kg/m2 BP Systolic 113 mmHg BP Diastolic 61 mmHg Heart Rate 84 /min O2 % BldC Oximetry 97 % Body Temperature 97.1 F Henderson Score 16 Pain Level 0 Results Description No Information Available Procedures Date Code Description Status 06/16/2019 78954 Nasal Endoscopy, Diag. Completed Medical Devices Description No Information Available Encounters Type Date Location Provider Dx Diagnosis Office Visit 06/16/2019 Main Office Puneet Perry M.D G47.39 Other sleep apnea 10:30a Office Visit 06/16/2019 Main Office Davis Flannery M.D. J32.9 Chronic sinusitis, 10:15a unspecified G47.33 Obstructive sleep apnea (adult) (pediatric) J35.01 Chronic tonsillitis Assessments Date Code Description Provider 06/16/2019 G47.39 Other sleep apnea Puneet Perry M.D 06/16/2019 J32.9 Chronic sinusitis, unspecified Davis Flannery M.D. 06/16/2019 G47.33 Obstructive sleep apnea (adult) (pediatric) Davis Flannery M.D. 06/16/2019 J35.01 Chronic tonsillitis Davis Flannery M.D. Plan of Treatment No Information Available Functional Status Description No Information Available Mental Status Description No Information Available Referrals Refer to Reason for Referral Status Appt Date Davis Flannery M.D. auth for ct sinus Created [address] [place] [id number] [phone]
[2019-07-28 20:30] VITALS: BP 104/66
[2019-07-28] MEDS ORDERED: Nitrofurantoin Macrocrystals* 50 MG CAP PO ONE ×2 (21:00→21:01)
[2019-07-28] MEDS ORDERED: Phenazopyridine TAB* 100 MG PO ONE ×2 (21:00→21:01)
--- NOTE | 2019-07-28 21:04 | UC ---
Complaint Female HPI - HPI Summary HPI Summary: 38-year-old woman comes in with UTI symptoms. Started several hours ago. She is urinary urgency and dysuria and frequency. No flank pain. She does have some suprapubic discomfort. Patient reports she's had UTIs before and this feels UTI. No fever. - History Of Current Complaint Chief Complaint: UCGU Stated Complaint: UTI COMPLAINT Time Seen by Provider: 07/28/19 20:55 Hx Last Menstrual Period: 07/12/19 Pain Intensity: 5 - Allergies/Home Medications Allergies/Adverse Reactions: Allergies Allergy/AdvReac Type Severity Reaction Status Date / Time cephalexin [From Keflex] Allergy Difficulty Verified 07/28/19 20:30 Breathing doxycycline Allergy Difficulty Verified 07/28/19 20:30 Breathing/Wheezing erythromycin base Allergy Difficulty Verified 07/28/19 20:30 [From Erythrocin] Breathing ibuprofen Allergy Hives Verified 07/28/19 20:30 levofloxacin [From Levaquin] Allergy Vomiting Verified 07/28/19 20:30 naproxen [From Naprosyn] Allergy Difficulty Verified 07/28/19 20:30 Breathing Penicillins Allergy Unknown Verified 07/28/19 20:30 Reaction Details sulfamethoxazole Allergy Difficulty Verified 07/28/19 20:30 [From Bactrim] Breathing tetanus and diphtheria Allergy Difficulty Verified 07/28/19 20:30 toxoids Breathing trimethoprim [From Bactrim] Allergy Difficulty Verified 07/28/19 20:30 Breathing some muscle relaxants Allergy Severe Nausea And Uncoded 06/29/19 11:44 Vomiting Home Medications: Home Medications FLUoxetine CAP* [Prozac CAP*] 30 mg PO QPM 02/12/15 [History Confirmed 07/28/19] Multivitamin [Multivitamins] 1 cap PO QPM 02/12/15 [History Confirmed 07/28/19] L. Acidophilus/Bifid. Animalis [Probiotic 5 Billion Cell Cap] 1 cap PO QPM 06/28 [History Confirmed 07/28/19] Melatonin 10 mg PO QPM 06/28/15 [History Confirmed 07/28/19] EPINEPHrine [Epipen 2-Jag] 0.3 mg IM SEE INSTRUCTIONS #1 inj 10/19/16 [Rx Confirmed 07/28/19] Ascorbic Acid TAB* [Vitamin C TAB*] 1,000 mg PO BID 06/11/17 [History Confirmed 07/28/19] Biotin 2,000 mcg PO DAILY 06/11/17 [History Confirmed 07/28/19] Calcium Carb/Vitamin D3/Vit K1 [Calcium + D 500-1000-40 mg-Unt-Mcg] 1 tab PO DAILY 06/11/17 [History Confirmed 07/28/19] Yumiko [place]/Linoleic/Gamoleni [Evening [place] 1,000 mg Sftg] 1,300 mg PO DAILY 06/11/17 [History Confirmed 07/28/19] Methylphenidate TAB* [Ritalin TAB*] 20 mg PO TID PRN 06/11/17 [History Confirmed 07/28/19] Pyridoxine HCl (Vitamin B6) [Vitamin B-6] 4 tab PO DAILY 06/11/17 [History Confirmed 07/28/19] Zinc Gluconate [Zinc] 75 mg PO DAILY 06/11/17 [History Confirmed 07/28/19] Acetaminophen with Codeine [Acetaminophen-Cod #3 Tablet] 1 tab TID PRN 01/04/18 [History Confirmed 07/28/19] Iron,Carb/Vit C/Vit B12/Folic [Iron 100 Plus Tablet] 1 tab DAILY 01/04/18 [ History Confirmed 07/28/19] Selenium 1 tab PO DAILY 01/04/18 [History Confirmed 07/28/19] Zolpidem TAB* [Ambien*] 1 tab PO QPM 01/04/18 [History Confirmed 07/28/19] Ondansetron TAB* [Zofran 4 MG Tab*] 4 mg PO Q6H PRN #12 tab 06/29/19 [Rx Confirmed 07/28/19] Nitrofurantoin Monohyd/M-Cryst [Macrobid 100 mg Capsule] 100 mg PO BID #12 cap 07/28/19 [Rx] Phenazopyridine 200 mg (NF) [Pyridium 200 MG tab *] 200 mg PO TID PRN #6 tab 07/17 [Rx] Riboflavin (B2) (NF) [Vitamin B-2 (NF)] 100 mg PO DAILY 07/28/19 [History Confirmed 07/28/19] Thyroid Pharmaceutical Sales Specialist 1 tab PO DAILY 07/28/19 [History Confirmed 07/28/19] PMH/Surg Hx/FS Hx/Imm Hx Previously Healthy: Yes Endocrine History: Hypothyroidism Other Psychological History: ADHD - Surgical History Surgical History: Yes Surgery Procedure, Year, and Place: TMJ SURGERY x2 2001, 2002. 2006. sinus surgery. [facility]. CAUTERIZED TEAR DUCTS - Family History Known Family History: Positive: Diabetes - maternal grandmother, Non- Contributory Negative: Cardiac Disease, Hypertension - Social History Alcohol Use: Rare Alcohol Amount: MAYBE 1 DRINK/YEAR Substance Use Type: None Smoking Status (MU): Never Smoked Tobacco Have You Smoked in the Last Year: No - Immunization History Most Recent Tetanus Shot: allergic to tetanus (last tetanus 2006) Review of Systems All Other Systems Reviewed And Are Negative: Yes Constitutional: Positive: Other - SEE HPI Skin: Positive: Negative Eyes: Positive: Negative ENT: Positive: Negative Respiratory: Positive: Negative Cardiovascular: Positive: Negative Gastrointestinal: Positive: Other - SEE HPI Genitourinary: Positive: Dysuria, Frequency, Urgency Motor: Positive: Negative Neurovascular: Positive: Negative Musculoskeletal: Positive: Negative Neurological/Mental Status: Positive: Negative Psychological: Positive: Negative Is Patient Immunocompromised?: No Physical Exam Triage Information Reviewed: Yes Appearance: Well-Appearing, No Pain Distress, Well-Nourished Vital Signs: Initial Vital Signs Temp 98.2 F 07/28/19 20:25 Pulse 99 07/28/19 20:25 Resp 12 07/28/19 20:25 BP 104/66 07/28/19 20:25 Pulse Ox 99 07/28/19 20:25 Vital Signs Reviewed: Yes Eye Exam: Normal Eyes: Positive: Conjunctiva Clear Neck: Positive: Supple Respiratory: Positive: Lungs clear, Normal breath sounds, No respiratory distress Cardiovascular: Positive: RRR Abdomen Description: Positive: CVA Tenderness (R), Other: - Tenderness to palpation suprapubic region.. Negative: CVA Tenderness (L) Musculoskeletal: Positive: Strength Intact, ROM Intact Neurological: Positive: Alert Psychological: Positive: Age Appropriate Behavior Skin Exam: Normal Complaint Female Dx - Differential Dx/Diagnosis Provider Diagnosis: UTI (urinary tract infection) Discharge ED - Sign-Out/Discharge Documenting (check all that apply): Patient Departure All imaging exams completed and their final reports reviewed: No Studies - Discharge Plan Condition: Stable Disposition: HOME Prescriptions: Nitrofurantoin Monohyd/M-Cryst [Macrobid 100 mg Capsule] 100 mg PO BID #12 cap Phenazopyridine 200 mg (NF) [Pyridium 200 MG tab *] 200 mg PO TID PRN #6 tab PRN Reason: Pain - Moderate Patient Education Materials: Urinary Tract Infection in Women (ED) Forms: *Work Release Referrals: Luis Fowler DO [Primary Care Provider] - Additional Instructions: FOLLOW UP WITH YOUR DOCTOR IF NOT COMPLETELY IMPROVED. GET REEVALUATED SOONER IF NOT IMPROVED OR WORSE; PAIN, FEVER, YOU FEEL ILL OR ANY QUESTIONS OR CONCERNS. - Billing Disposition and Condition Condition: STABLE Disposition: Home
--- NOTE | 2019-07-30 14:57 | UC ---
- Progress Note Progress Note: Please call to advise that urine culture did not grow bacteriak in a significant count. If her symptoms are resolved, she can stop the antibiotic. If symptoms are persistent should follow up with her PMD Course/Dx - Diagnoses Provider Diagnoses: UTI (urinary tract infection) Discharge ED - Sign-Out/Discharge Documenting (check all that apply): Post-Discharge Follow Up All imaging exams completed and their final reports reviewed: No Studies - Discharge Plan Condition: Stable Disposition: HOME Prescriptions: Fluconazole 150 MG TAB* [Diflucan 150 MG TAB*] 150 mg PO ONCE #2 tablet Nitrofurantoin Monohyd/M-Cryst [Macrobid 100 mg Capsule] 100 mg PO BID #12 cap Phenazopyridine 200 mg (NF) [Pyridium 200 MG tab *] 200 mg PO TID PRN #6 tab PRN Reason: Pain - Moderate Patient Education Materials: Urinary Tract Infection in Women (ED) Forms: *Work Release Referrals: Luis Fowler DO [Primary Care Provider] - Additional Instructions: FOLLOW UP WITH YOUR DOCTOR IF NOT COMPLETELY IMPROVED. GET REEVALUATED SOONER IF NOT IMPROVED OR WORSE; PAIN, FEVER, YOU FEEL ILL OR ANY QUESTIONS OR CONCERNS. - Billing Disposition and Condition Condition: STABLE Disposition: Home
== END 2019-07-28 21:28 | disposition home or self-care (01) ==
LOC: UCEAST 20:15
DX: N39.0 Urinary tract infection, site not specified (principal); E03.9 Hypothyroidism, unspecified; F90.9 Attention-deficit hyperactivity disorder, unspecified type; Z88.1 Allergy status to other antibiotic agents; Z88.6 Allergy status to analgesic agent; Z88.0 Allergy status to penicillin; Z88.2 Allergy status to sulfonamides; Z88.7 Allergy status to serum and vaccine; Z88.8 Allergy status to other drugs, medicaments and biological substances; Z79.890 Hormone replacement therapy; Z79.899 Other long term (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 therapy
CPT/HCPCS: 81003; 87086; 99213; A9270-GY; G0463